=== PATIENT | female | born 1960 | race Asian ===

== ENCOUNTER → 2020-11-29 17:37 | Outpatient (CLI) | payer BC, SELFPAY ==
--- NOTE | ~2020-11-29 | MM_ITS ---
EXAMINATION: MM screening [facility] w juan jose HISTORY: Screening mammogram TECHNIQUE: Craniocaudal and mediolateral oblique 3-D tomosynthesis images were obtained and synthetic 2-D images were generated. CAD analysis was submitted and interpreted. COMPARISON: 08/13/2017, 08/04/2017, 03/27/2016, 05/25/2012 BREAST PARENCHYMAL COMPOSITION: There are scattered areas of fibroglandular density. FINDINGS: A chronic asymmetry is present in the posterior third of the outer right breast on the cran iocaudal view. There is no evidence of suspicious mass, calcification, or architectural distortion to suggest malignancy in either breast. There has been no suspicious interval change. IMPRESSION: 1. No mammographic evidence of malignancy. 2. Recommend routine screening mammography in one year. BI-RADS Category 2: Benign finding(s). Reviewed, dictated and finalized at location A.
--- NOTE | ~2020-11-29 | DEXA_ITS ---
Bone Density Report Name: Leny Roth Age: 60 Sex: Female Ethnicity: Date of : 1960 Indication: postmenopausal; screening for osteoporosis; parental hip fracture; Referring Provider: Matty, Lupe Aviles Study: Bone densitometry was performed. Exam Date: November 29, 2020 Accession number: [id number] Bone Density: Region BMD T-score Z-score Classification AP Spine (L1, L2) 1.356 3.4 4.7 Normal Femoral Neck (Left) 0.768 -0.7 0.5 Normal Total Hip (Left) 1.010 0.6 1.5 Normal Femoral Neck (Right) 0.868 0.2 1.4 Normal Total Hip (Right) 1.007 0.5 1.4 Normal Total Hip Mean 1.009 0.6 1.5 Normal World Health Organization criteria for BMD impression classify patients as: Normal (T-score at or above -1.0), Osteopenia (T-score between -1.0 and -2.5), or Osteoporosis (T-score at or below -2.5). 10-year Fracture Risk: FRAX not reported because: All T-scores for Spine Total, Hip Total, Femoral Neck at or above -1.0 Previous Exams: Region Exam Age BMD T-score BMD Change BMD Change Date g/cm2 vs Baseline vs Previous AP Spine(L1, L2) 11/29/2020 60 1.356 3.4 0.029 -0.007 08/04/2017 56 1.362 3.5 0.036* 0.036* 06/15/2013 52 1.327 3.2 Total Hip(Left) 11/29/2020 60 1.010 0.6 0.047 0.061 08/04/2017 56 0.949 0.1 -0.014 -0.014 06/15/2013 52 0.962 0.2 Total Hip(Right) 11/29/2020 60 1.007 0.5 -0.017 0.020 08/04/2017 56 0.987 0.4 -0.037* -0.037* 06/15/2013 52 1.024 0.7 *Denotes significance at 95% confidence level, LSC for AP Spine = 0.022 g/cm2, LSC for Total Hip = 0.027 g/cm2 Clinical Information Provided by Patient: Parent has had a hip fracture Has used the following medications: Vitamin D Patient maximum height was 60.0 Menopause Age: 53 No regular weight bearing exercise Drinks caffeinated beverages Onset of menses at age 11 Number of children 3 Impression: The patient has normal bone mass. The patient has risk factors, including: parental hip fracture. No significant bone loss was observed. Discussion: BONE DENSITY IS ABOVE THE MINIMUM DESIRABLE LEVEL AT ALL SKELETAL SITES TESTED. This patient?s bone mineral density is above the minimum desirable level (T-score -1.0 or better) at all sites measured. The patient should follow a healthful lifestyle (good nutrition with adequate calcium and
== END ==
PROVIDERS: Visit Provider Nurse Practitioner Family
DX: Z12.31 Encounter for screening mammogram for malignant neoplasm of breast (principal); Z78.0 Asymptomatic menopausal state
CPT/HCPCS: 77063; 77067; 77080

== ENCOUNTER 2020-11-30 09:11 | Outpatient (CLI) | payer BC, SELFPAY ==
--- NOTE | 2020-11-30 13:09 | WPDPFTINT ---
PFT Procedure Performed PFT Procedure Performed Spirometry with Pre/Post Bronchodilator Plethysmography (Lung Vol) Diffusing Cap (DLCO) Flow Vol Loop PFT Interpretation This is a pulmonary function test with pre and post-bronchodilator spirometry, plethysmography and diffusing capacity. The test was performed and results interpreted in accordance with the 2019 and 2005 ATS/ERS Task Force guidelines respectively using the Global Lung Function Initiative-2012 reference equations. Patient demonstrated good effort and cooperation. Reproducibility criteria were met. The quality of the pre bronchodilator spirometry maneuver was Grade A and post bronchodilator spirometry maneuver was Grade A. Findings: Spirometry: The contour the inspiratory and expiratory flow tracing are normal. The pre bronchodilator FVC is 1.73 L, 63% predicted. The pre bronchodilator FEV1 is 1.31 L, 60% predicted. The FEV1: FVC ratio is 76%. The post bronchodilator FVC is 1.74, representing 0% change. The post bronchodilator FEV1 is 1.41 L, representing an 8% increase. Plethysmography: The total lung capacity is 2.92 L, 66% predicted. The functional residual capacity is 1.24 L, 50% predicted. The residual volume is 1.18 L, 67% predicted. Diffusing capacity: The absolute diffusion capacity is 14.7, 73% predicted. The diffusing capacity corrected for alveolar volume is 5.69, 123% predicted. Impression: There is a moderate restrictive ventilatory abnormality. The spirometry is normal without evidence of an obstructive abnormality. There is no significant improvement after inhaling a single dose of albuterol. The diffusing capacity is normal. There are no prior studies for comparison
--- NOTE | 2020-11-30 13:12 | WPDSIXMINUTE ---
Six Minute Walk Procedure Procedure Performed Pulmonary Stress Test (6 min walk) Six Minute Walk This is a 6 minutes walk test. The test was performed and interpreted in accordance with the 2014 ERS/ATS task force guidelines. Findings: The patient's resting room air oxygen saturation measured by pulse oximetry was 96% and her heart rate was 77 bpm. Patient ambulated for 335 meters and oxygen saturation remained 94 to 98%. Heart rate at the end of the study was 109 bpm. The patient did not qualify for supplemental oxygen at rest or with ambulation. There are no prior studies for comparison.
== END 2020-11-30 09:12 | disposition home or self-care (01) ==
LOC: ANHPFT 09:13
PROVIDERS: PCP Nurse Practitioner Family; Visit Provider Nurse Practitioner Family
DX: R06.00 Dyspnea, unspecified (principal); R94.2 Abnormal results of pulmonary function studies
CPT/HCPCS: 94060; 94618; 94726; 94729

== ENCOUNTER 2020-12-12 06:36 | Outpatient (CLI) | payer BC, SELFPAY ==
--- NOTE | ~2020-12-12 | CT_ITS ---
EXAMINATION: CT chest high resolution wo ma DATE: 12/12/2020 06:55 INDICATION: Abnormal pulmonary function tests, restrictive lung function TECHNIQUE: Computed tomography (CT) of the chest was performed without intravenous contrast. The dose -length product (DLP) was 209.81 mGy-cm. Automated exposure control and iterative reconstruction tech nique were employed. COMPARISON: None FINDINGS: There are patchy dependent groundglass opacities of the mid and lower lung zones. No pleura l effusion or pneumothorax is identified. No pathologically enlarged thoracic lymph nodes are identif ied. The heart size is normal. There is a 7 mm nodule of the right thyroid lobe. There is moderate th oracic spondylosis. There are partially imaged changes of anterior fusion in the lower cervical spine . IMPRESSION: 1. Mild atelectasis without acute cardiopulmonary abnormality. Reviewed, dictated and finalized at location A.
== END 2020-12-12 06:37 | disposition home or self-care (01) ==
LOC: ANHIMG 06:38
PROVIDERS: PCP Nurse Practitioner Family; Visit Provider Nurse Practitioner
DX: R94.2 Abnormal results of pulmonary function studies (principal); R91.8 Other nonspecific abnormal finding of lung field
CPT/HCPCS: 71250

== ENCOUNTER → 2021-03-02 03:46 | Outpatient (CLI) | payer BC, SELFPAY ==
[2021-03-03 01:35] LABS: SARS-CoV-2 RNA PCR Negative
== END ==
PROVIDERS: PCP Nurse Practitioner Family; Visit Provider Internal Medicine Gastroenterology
DX: Z01.812 Encounter for preprocedural laboratory examination (principal); Z20.822 Contact with and (suspected) exposure to COVID-19
CPT/HCPCS: C9803; U0003; U0005

== ENCOUNTER 2021-03-05 01:23 | Day surgery (SDC) | payer BC, SELFPAY ==
[2021-03-01 11:10] VITALS: BMI 33.1
--- NOTE | 2021-03-05 06:33 | PM.HPGS ---
History of Present Illness History of Present Illness Consent: Risks, benefits, and alternatives have been discussed and questions answered. Patient agrees to proceed with procedure. Chief complaint: diverticulitis, abd ct Narrative: Leny Roht is a 60 year old female Who recently had a CT scan performed to investigate left lower quadrant pain. This study revealed thickening in the sigmoid colon and also what appears to be thickening in the gastric antrum. She has had no weight loss. Review of Systems Review of Systems: All systems reviewed & are unremarkable except as noted in HPI and below PMFSH Family History Family History Other Hypertension Social History Social History Smoking packs per day: 0.5 Smoking cigarettes per day: 10.0 Years smoked: 35 Smoking pack-years: 17.50 Smoking status: Former smoker Tobacco type: cigarettes Alcohol intake: current Substance use: never Substance use type: does not use Living arrangements: with family Spiritual care concerns: No Meds Home Medications and Allergies Home Medications Medication Instructions Recorded Confirmed Type Daily Probiotic 1 cap PO DAILY 03/01/21 03/01/21 History albuterol sulfate 2 puff INHALATION Q4-6H PRN 03/01/21 03/01/21 History allopurinol 100 mg PO DAILY 03/01/21 03/01/21 History aspirin [Aspirin Low Dose] 81 mg PO DAILY 03/01/21 03/01/21 History ergocalciferol (vitamin D2) 50,000 unit PO WEEKLY 03/01/21 03/01/21 History lisinopril 5 mg PO DAILY 03/01/21 03/01/21 History montelukast 10 mg PO DAILY 03/01/21 03/01/21 History nitrofurantoin monohyd/m-cryst 100 mg PO DAILY PRN 03/01/21 03/01/21 History omeprazole 40 mg PO DAILY 03/01/21 03/01/21 History rosuvastatin 20 mg PO DAILY 03/01/21 03/01/21 History Allergies Allergy/AdvReac Type Severity Reaction Status Date / Time No Known Allergies Allergy Verified 03/05/21 07:10 Exam Resp: Auscultation: clear to auscultation bilaterally Cardio: Rate: regular rate Rhythm: regular rhythm GI: GI Palp: Yes Soft to palpation and No Tenderness to palpation present (GI) Assessment and Plan Assessment and plan (1) Abnormal CT scan, gastrointestinal tract: Code(s): R93.3 - Abnormal findings on diagnostic imaging of other parts of digestive tract Status: Acute Assessment and Plan: EGD with possible biopsy or dilatation or cautery.Colonoscopy with possible biopsy or polypectomy or cautery or injection of substances.
[2021-03-05 07:15] VITALS: BP 150/95; PULSE 100; RESP 18; TEMP 36.1; O2SAT 97
--- NOTE | 2021-03-05 07:27 | WPDANESEPPF ---
Anes - Initial Pre Proc Eval Procedure: Operation Date: 03/05/21 07:30 Proposed Procedures p Esophagogastroduodenoscopy & Colonoscopy - Jhonathan Narayan MD Date/Time: 03/05/21 07:27 Surgeon: Jhonathan Narayan MD Pre Op Diagnosis: diverticulitis, abd ct Patient Data Age: 60 Gender: F Height: 1.52 m Weight: 75.7 kg Last Vital Signs Temp 36.1 C L 03/05/21 07:15 Pulse 100 03/05/21 07:15 Resp 18 03/05/21 07:15 BP 150/95 H 03/05/21 07:15 Pulse Ox 97 03/05/21 07:15 Allergies Allergy/AdvReac Type Severity Reaction Status Date / Time No Known Allergies Allergy Verified 03/05/21 07:10 Home Medications Medication Instructions Recorded Confirmed Type Daily Probiotic 1 cap PO DAILY 03/01/21 03/01/21 History albuterol sulfate 2 puff INHALATION Q4-6H PRN 03/01/21 03/01/21 History allopurinol 100 mg PO DAILY 03/01/21 03/01/21 History aspirin [Aspirin Low Dose] 81 mg PO DAILY 03/01/21 03/01/21 History ergocalciferol (vitamin D2) 50,000 unit PO WEEKLY 03/01/21 03/01/21 History lisinopril 5 mg PO DAILY 03/01/21 03/01/21 History montelukast 10 mg PO DAILY 03/01/21 03/01/21 History nitrofurantoin monohyd/m-cryst 100 mg PO DAILY PRN 03/01/21 03/01/21 History omeprazole 40 mg PO DAILY 03/01/21 03/01/21 History rosuvastatin 20 mg PO DAILY 03/01/21 03/01/21 History Patient hx anesthesia problems: none Family hx anesthesia problems: none PMFSH Past Medical History Medical History (Updated 03/05/21 @ 07:30 by Isac Mckinney MD) GERD (gastroesophageal reflux disease) Hyperlipidemia Obesity Family History Family History Other Hypertension Social History Social History Smoking packs per day: 0.5 Smoking cigarettes per day: 10.0 Years smoked: 35 Smoking pack-years: 17.50 Smoking status: Former smoker Tobacco type: cigarettes Alcohol intake: current Substance use: never Substance use type: does not use Living arrangements: with family Spiritual care concerns: No Anes - Eval Final PreProcedure Day of Procedure 03/05/21 07:27 Patient weight: obese Heart: regular rate and rhythm Lungs: clear to auscultation Airway: Mallampati scale class II Neurological: alert and oriented Last oral intake: >/= 8 hours ASA classification: III Emergent: no Anesthetic plan: proceed Anesthesia type and monitoring: general GIVS and standard monitoring Informed Consent: The patient's anesthetic plan and its attendant risks and benefits were discussed with the patient/family/POA. Questions were solicited and answers provided to the satisfaction of the patient/family/POA.
[2021-03-05] MEDS: LACTATED RINGERS 1,000 ML 150 ML IV CONT (07:29)
[2021-03-05 08:30] VITALS: BP 102/73; PULSE 83; RESP 22; O2SAT 100
[2021-03-05 08:40] VITALS: BP 115/87; PULSE 76; RESP 19; O2SAT 98
[2021-03-05 08:50] VITALS: BP 122/89; PULSE 71; RESP 17; O2SAT 100
== END 2021-03-05 08:59 | disposition home or self-care (01) ==
PROVIDERS: PCP Nurse Practitioner Family; Visit Provider Internal Medicine Gastroenterology
PROC: 0DJ08ZZ Inspection of Upper Intestinal Tract, Via Natural or Artificial Opening Endoscopic (ICD-10-PCS; CPT 43235; principal; 2021-03-05 07:30)
DX: R93.3 Abnormal findings on diagnostic imaging of other parts of digestive tract (principal); K21.9 Gastro-esophageal reflux disease without esophagitis; K57.30 Diverticulosis of large intestine without perforation or abscess without bleeding; Z87.891 Personal history of nicotine dependence
CPT/HCPCS: 43239; 45378; 87081; 88305; J2704; J7120

== ENCOUNTER 2021-05-04 11:18 | Inpatient (IN) | payer BC, SELFPAY ==
--- NOTE | ~2021-05-04 | XR_ITS ---
XR chest 1V portable 05/06/2021 05:48 Indication: CovidPneumonia. Procedure: AP portable chest Comparison: 05/04/2021 Findings: No significant change to extensive bilateral airspace disease. Heart size upper normal. No pleural effusion or pneumothorax. No acute osseous abnormality. Impression: 1: Stable diffuse bilateral airspace disease, compatible with pneumonia. Edema less favored. Reviewed, dictated and finalized at location A. Impression: 1: Stable diffuse bilateral airspace disease, compatible with pneumonia. Edema less favored.
--- NOTE | ~2021-05-04 | XR_ITS ---
EXAMINATION: XR chest 1V portable DATE: 05/09/2021 14:02 INDICATION: Hypoxia. COVID. TECHNIQUE: frontal view of the chest was obtained. COMPARISON: Chest radiograph dated 05/08/2021 FINDINGS: No interval change in diffuse airspace opacities throughout both lungs relatively sparing the apices. No pleural effusion or pneumothorax. The cardiomediastinal silhouette is normal. IMPRESSION: 1. Unchanged diffuse bilateral lung disease consistent with COVID 19 pneumonia. Reviewed, dictated and finalized at location A.
--- NOTE | ~2021-05-04 | XR_ITS ---
EXAMINATION: XR chest 1V portable EXAM DATE: 05/04/2021 12:38 INDICATION: SOB, covid + . TECHNIQUE: Portable AP frontal chest x-ray was obtained. There is no prior study for comparison. FINDINGS: Diffuse acute airspace disease consistent with COVID pneumonia. No pneumothorax or pleural effusion. Cardiomediastinal silhouette is normal. There are bony degenerative changes. IMPRESSION: Diffuse COVID pneumonia. Reviewed, dictated and finalized at location B. IMPRESSION: Diffuse COVID pneumonia.
--- NOTE | ~2021-05-04 | XR_ITS ---
EXAMINATION: XR chest 1V portable DATE: 05/08/2021 05:57 INDICATION: Shortness of breath. TECHNIQUE: A single frontal view of the chest was obtained. COMPARISON: Chest single view 05/06/2021, chest CT 12/12/2020 FINDINGS: The patient is rotated to her left. There are airspace opacities in all lung zones bilatera lly. No pleural effusion or pneumothorax. The heart size is normal. There are changes of anterior fus ion procedure in cervical spine. IMPRESSION: 1. Stable diffuse lung disease, consistent with COVID-19 pneumonia. Reviewed, dictated and finalized at location A.
[2021-05-04 11:27] VITALS: BP 125/90; PULSE 111; RESP 28; TEMP 36.9; O2SAT 69
--- NOTE | 2021-05-04 11:39 | ECG_ITS ---
Measurements Intervals [place] Rate: 95 P: 70 SD: 145 QRS: 78 QRSD: 136 T: 53 QT: 386 QTc: 486 Interpretive Statements SINUS RHYTHM RIGHT BUNDLE BRANCH BLOCK BASELINE ARTIFACT- I, II, III, AVR, AVF, V2-V6 ABNORMAL ECG Electronically Signed On 05-04-2021 11:55:40 CDT by Edwin Zimmerman D.O.
--- NOTE | 2021-05-04 11:57 | ED.SOB ---
HPI - SOB/Dyspnea General Chief Complaint: Shortness of Breath/Dyspnea <Jessica Kumar PA-C - Last Filed: 05/04/21 15:42> Stated Complaint: COVID + LOW O2 SATS <SYDNI Judd Last Filed: 05/04/21 15:42> Time Seen by Provider: 05/04/21 11:40 <SYDNI Judd Last Filed: 05/04/21 15:42> Source: patient <SYDNI Judd Last Filed: 05/04/21 15:42> Mode of arrival: ambulatory <SYDNI Judd Last Filed: 05/04/21 15:42> Limitations: no limitations <SYDNI Judd Last Filed: 05/04/21 15:42> History of Present Illness HPI Narrative: This is a 60 year old female that presents to the ER for shortness of breath. Reports she started having symptoms and tested positive for Covid on the of this month. Reports fever, nausea, cough and myalgias. Reports chest pain with coughing. She is not Covid vaccinated. She was seen at [facility] 3 days ago and diagnosed with pneumonia. She was started on doxycycline and a Medrol Dosepak. Denies lower extremity edema. <SYDNI Judd Last Filed: 05/04/21 15:42> Related Data Home Medications: Home Medications Medication Instructions Recorded Confirmed Daily Probiotic 1 cap PO DAILY 03/01/21 03/01/21 albuterol sulfate 2 puff INHALATION Q4-6H PRN 03/01/21 03/01/21 allopurinol 100 mg PO DAILY 03/01/21 03/01/21 aspirin [Aspirin Low Dose] 81 mg PO DAILY 03/01/21 03/01/21 ergocalciferol (vitamin D2) 50,000 unit PO WEEKLY 03/01/21 03/01/21 lisinopril 5 mg PO DAILY 03/01/21 03/01/21 montelukast 10 mg PO DAILY 03/01/21 03/01/21 nitrofurantoin monohyd/m-cryst 100 mg PO DAILY PRN 03/01/21 03/01/21 omeprazole 40 mg PO DAILY 03/01/21 03/01/21 rosuvastatin 20 mg PO DAILY 03/01/21 03/01/21 <Jessica Kumar PA-C - Last Filed: 05/04/21 15:42> Allergies/Adverse Reactions: Allergies Allergy/AdvReac Type Severity Reaction Status Date / Time No Known Allergies Allergy Verified 03/05/21 07:10 <Jessica Kumar PA-C - Last Filed: 05/04/21 15:42> Review of Systems Review of Systems: CONSTITUTIONAL: Reports fever, chills CARDIOVASCULAR: Reports chest pain. Denies edema. RESPIRATORY: Reports cough or dyspnea. GASTROINTESTINAL: Denies abdominal pain MUSCULOSKELETAL: Reports myalgia. NEUROLOGIC: Denies numbness, or weakness. <Jessica Kumar PA-C - Last Filed: 05/04/21 15:42> All systems reviewed & are unremarkable except as noted in HPI and below <Jessica Kumar PA-C - Last Filed: 05/04/21 15:42> PMFSH Past Medical History Medical History: Medical History (Updated 05/04/21 @ 15:37 by Jessica Kumar PA-C) GERD (gastroesophageal reflux disease) History of asthma History of hypertension Hyperlipidemia Obesity <Jessica Kumar PA-C - Last Filed: 05/04/21 15:42> Family History Family History: Family History Other Hypertension <Jessica Kumar PA-C - Last Filed: 05/04/21 15:42> Social History Social History: Social History Smoking packs per day: 0.5 Smoking cigarettes per day: 10.0 Years smoked: 35 Smoking pack-years: 17.50 Smoking status: Former smoker Tobacco type: cigarettes Alcohol intake: current Substance use: never Substance use type: does not use Spiritual care concerns: No <Jessica Kumar PA-C - Last Filed: 05/04/21 15:42> Exam Narrative: GENERAL: Well-appearing, well-nourished, and in no acute distress. HEAD: Normocephalic, atraumatic. EYES: PERRLA and EOMI. ENT: Nares clear, no rhinorrhea or epistaxis. Mucous membranes moist. Oropharynx without tonsillar hypertrophy exudate or other lesions. Bilateral TMs pearly soto non-bulging NECK: Supple. No adenopathy or masses. CHEST: No respiratory distress. Rales noted at the bases. No wheezes or rhonchi HEART: Regular rate and rhythm. No murmur heard. Normal pe
[2021-05-04 12:12] LABS: Alveolar/Arterial O2 Gradient 148.5 mmHg; Base Excess ABG 1.7 mEq/l (+/-2.0); Carboxyhemoglobin 0.8 % THb (0-2.0); Fractional Inspired Oxygen 40 %; HCO3 ABG 25.6 mEq/l (22.0-26.0); Methemoglobin ABG 0.3 %THb (0-1.5); Oxygen Content ABG 19.5 %vol (16.0-22.0); Oxygen Saturation ABG 97.4 % (95.0-100.0); Oxyhemoglobin 95.4 % THb (90.0-100.0); PCO2 ABG 37.9 mmHg (35.0-45.0); PO2 ABG 93.1 mmHg (80.0-100.0); PO2 FiO2 Ratio Arterial Blood 2.33 %; Reduced Hemoglobin 3.5 %THb (0-5.0); Total Hemoglobin 14.5 g/dL (12.0-18.0); pH ABG 7.447 (7.350-7.450)
[2021-05-04 12:14] LABS: Device NASAL CANNULA
[2021-05-04 12:15] LABS: Site Drawn RIGHT BRACHIAL
[2021-05-04 12:15] LABS: Basophils Percent Auto 0.2 % (0.2-1.2); Hemoglobin 14.7 g/dL (12.0-15.0); Immature Granulocyte Absolute 0.19 K/mm3 (0.00-0.031); Immature Granulocyte Percent A 1.7 % (0-0.5); Lymphocytes Absolute Auto 0.85 K/mm3 (0.9-3.2); Lymphocytes Percent Auto 7.6 % (18.3-44.2); Mean Corpuscular HGB Conc 32.7 g/dl (32-36); Mean Corpuscular Hemoglobin 29.5 pg (26-34); Mean Corpuscular Volume 90.4 fl (80-100); Mean Platelet Volume 9.7 fl (7.4-10.4); Monocytes Absolute Auto 0.6 K/mm3 (0.1-0.6); Neutrophils Absolute Auto 9.6 K/mm3 (1.3-6.7); Neutrophils Percent Auto 85.5 % (45.5-73.1); Platelet Count Result 281 k/mm3 (150-375); Red Blood Count 4.98 M/mm3 (4.2-5.4); Red Cell Distribution Width 12.9 % (11.5-14.5); White Blood Count 11.2 K/mm3 (4.5-10.0)
[2021-05-04 12:41] LABS: Alanine Aminotransferase 204 U/L (4-35); Albumin Level 4.5 g/dL (3.5-5.1); Alkaline Phosphatase 123 U/L (38-126); Anion Gap 9 mmol/L (8-16); Aspartate Amino Transferase 209 U/L (14-36); Bilirubin,Total 1.2 mg/dL (0.2-1.3); Blood Urea Nitrogen 14 mg/dL (7-17); CRP 6.5 mg/dL (<1.0); Calcium 9.5 mg/dL (8.4-10.2); Carbon Dioxide 32 mmol/L (22-30); Chloride 94 mmol/L (98-107); Estimated CRCL calculation 78 ml/min; Estimated Glomerular Filt Rate > 60; Glucose 105 mg/dL (65-110); Potassium 3.7 mmol/L (3.4-5.0); Sodium 135 mmol/L (137-145)
[2021-05-04 12:53] LABS: Lactate Dehydrogenase 1911 U/L (313-618)
[2021-05-04 13:14] LABS: Troponin I < 0.012 ng/mL (0.000-0.034)
[2021-05-04 13:46] VITALS: BP 116/77; PULSE 89; RESP 18; O2SAT 97
[2021-05-04 13:52] LABS: INR 0.9; Prothrombin Time 12.1 Seconds (11.1-14.7)
[2021-05-04 13:53] LABS: Partial Thromboplastin Time 29.5 SECONDS (22.3-36.8)
[2021-05-04 13:55] LABS: D Dimer 1.04 ug/mL (<0.48)
--- NOTE | 2021-05-04 14:31 | PC.NURSE ---
Pt went down for CTSCAN. Pt informed tech that she did not want to have another CTSCAN due to having one earlier this week. PT states she doesnt want to be charged twice.
[2021-05-04 15:00] VITALS: BP 135/76; PULSE 95; RESP 21; O2SAT 100
--- NOTE | 2021-05-04 15:15 | PC.NURSE ---
consent signed by pt to have medical information sent from [facility] . Faxed paperwork [phone]
[2021-05-04 15:31] LABS: Ferritin > 2000.00 ng/mL (11.1-264)
[2021-05-04 16:33] LABS: Procalcitonin 0.1 ng/mL
--- NOTE | 2021-05-04 17:30 | PM.IMHP ---
H&P: HPI History of Present Illness Date/Time: 05/04/21 17:30 Chief Complaint: Shortness of breath and low oxygen saturations. Narrative: This is a 60-year-old female with hypertension, hyperlipidemia, and seasonal asthma who presented to the emergency department earlier today via private vehicle from home for evaluation of shortness of breath and low oxygen saturations. She has not been feeling well for about 10 days with malaise, myalgias, nonproductive cough, nausea, decreased appetite, and fever up to 103.5? F. She tested positive for COVID 19 on 04/24/2021 and she was prescribed a Z-Gurjit and Tessalon Perles the following day. Unfortunately her symptoms did not improve and in fact they continued to worsen and she was seen in the emergency department at [facility] days ago at which time she was diagnosed with pneumonia. She was discharged with prescriptions for a Medrol Dosepak as well as doxycycline and she was told to monitor her pulse ox. Her SpO2 has been dropping down into the 70s with coughing jags which prompted her to come in today. On arrival to the emergency department her SpO2 was 69% on room air and she was placed on 6 L nasal cannula with improvement in her shortness of breath and saturations. Chest x-ray today showed diffuse airspace disease consistent with COVID pneumonia and she is being admitted in this setting. The patient was not vaccinated for COVID and she did not receive any other treatment prior to admission today other than what is listed above. Review of Systems Review of Systems: Twelve systems were reviewed. No syncope or near syncope. She denies anosmia and dysgeusia. Appetite has been poor. No vomiting. No diarrhea. She has not had exertional chest pain but reports some heaviness with her shortness of breath. Her cough has been nonproductive. No lower extremity edema. No pleuritic pain or palpitations. Except as documented, all other systems were reviewed and are negative. [facility] Past Medical History Medical History (Updated 05/04/21 @ 23:06 by Leonora Tovar PA-C) COVID-19 (04/24/21) Diverticulitis Gastroesophageal reflux disease Hyperlipidemia Hypertension Obesity Seasonal asthma Surgical History Surgical History (Updated 05/04/21 @ 23:03 by Leonora Tovar PA-C) History of 3 sections History of cervical spinal surgery History of lumbar surgery Family History Family History Other Hypertension Social History Social History (Updated 05/04/21 @ 23:03 by Leonora Tovar PA-C) Social History: Surrogate decision maker: Isac Roth, spouse. Code status: Full code. Smoking packs per day: 0.5 Smoking cigarettes per day: 10.0 Years smoked: 35 Smoking pack-years: 17.50 Smoking status: Former smoker Tobacco type: cigarettes Alcohol intake: current Drinks per week: 1 Substance use: never Substance use type: does not use Additional living arrangements comments: Lives in [place] with her . They have 3 children. Additional occupation/education comments: Employed at a [employer]. Spiritual care concerns: Yes (Lev Hsiehecostal) Meds Home Medications and Allergies Home Medications Medication Instructions Recorded Confirmed Type L.acidoph,saliva-B.bif-S.therm 1 cap PO DAILY #0 03/01/21 05/04/21 History [Acidophilus Probiotic Blend] albuterol sulfate 2 puff INHALATION Q4-6H PRN 03/01/21 05/04/21 History allopurinol 100 mg PO DAILY 03/01/21 05/04/21 History aspirin [Aspirin Low Dose] 81 mg PO DAILY 03/01/21 05/04/21 History ergocalciferol (vitamin D2) 50,000 unit PO WEEKLY 03/01/21 05/04/21 History lisinopril 5 mg PO HS 03/01/21 05/04/21 History montelukast 10 mg PO HS 03/01/21 05/04/21 History nitrofurantoin monohyd/m-cryst 100 mg PO HS PRN 03/01/21 05/04/21 History omeprazole 40 mg PO HS 03/01/21 05/04/21 History rosuvastatin 20 mg PO HS 03/01/2104/20
[2021-05-04 18:30] VITALS: O2SAT 93
[2021-05-04 20:00] VITALS: PULSE 95; RESP 21; O2SAT 93
[2021-05-04 23:05] LABS: Glucose Point of Care 111 mg/dl (65-105)
[2021-05-05] VITALS (17 sets, daily range): BP systolic 103–136; BP diastolic 59–85; PULSE 72–111; RESP 16–22; TEMP 36.3–37; O2SAT 88–98
[2021-05-05] MEDS: REMDESIVIR 200 MG/NS 250 ML 200 MG/250 ML BAG 250 MG IVPB (00:40)
[2021-05-05] MEDS: ROSUVASTATIN 10 MG TABLET 20 MG PO ×2 (00:41→21:59)
[2021-05-05] MEDS: PANTOPRAZOLE 40 MG TABLET PO ×2 (00:44→22:00)
[2021-05-05] MEDS: guaiFENesin 12 HR 600 MG TABCR PO ×3 (00:44→21:59)
[2021-05-05] MEDS: MONTELUKAST SODIUM 10 MG TABLET PO ×2 (00:44→21:59)
[2021-05-05] MEDS: DOXYCYCLINE HYCLATE 100 MG TABLET PO ×3 (00:45→22:00)
[2021-05-05] MEDS: lisinopriL 5 MG TABLET PO ×2 (01:00→21:59)
[2021-05-05 06:28] LABS: Hematocrit 38.8 % (37.0-47.0); Hemoglobin 13.1 g/dL (12.0-15.0); Mean Corpuscular HGB Conc 33.8 g/dl (32-36); Mean Corpuscular Hemoglobin 29.9 pg (26-34); Mean Corpuscular Volume 88.6 fl (80-100); Platelet Count Result 284 k/mm3 (150-375); Red Blood Count 4.38 M/mm3 (4.2-5.4); Red Cell Distribution Width 12.5 % (11.5-14.5); White Blood Count 7.8 K/mm3 (4.5-10.0)
[2021-05-05 06:36] LABS: INR 0.9; Prothrombin Time 12.5 Seconds (11.1-14.7)
[2021-05-05 06:39] LABS: D Dimer 1.16 ug/mL (<0.48)
[2021-05-05 06:40] LABS: Alanine Aminotransferase 186 U/L (4-35); Albumin Level 3.8 g/dL (3.5-5.1); Alkaline Phosphatase 110 U/L (38-126); Anion Gap 10 mmol/L (8-16); Aspartate Amino Transferase 118 U/L (14-36); Bilirubin,Total 1.1 mg/dL (0.2-1.3); Blood Urea Nitrogen 13 mg/dL (7-17); CRP 8.4 mg/dL (<1.0); Carbon Dioxide 28 mmol/L (22-30); Chloride 96 mmol/L (98-107); Estimated CRCL calculation 79 ml/min; Estimated Glomerular Filt Rate > 60; Glucose 148 mg/dL (65-110); Lactate Dehydrogenase 1366 U/L (313-618); Magnesium 2.1 mg/dL (1.6-2.3); Sodium 134 mmol/L (137-145)
[2021-05-05 08:33] LABS: Hepatitis B Surface Antigen Negative (Negative)
[2021-05-05 08:39] LABS: HAV RESULT Negative (Negative); Hepatitis B Core IgM Result Negative (Negative)
[2021-05-05 08:51] LABS: Hepatitis C Virus Antibody Negative (Negative)
[2021-05-05] MEDS: ASPIRIN 81 MG ENTERIC TABLET PO (10:37)
[2021-05-05] MEDS: ENOXAPARIN 40 MG/0.4 ML SYRINGE SUB-Q (10:37)
[2021-05-05] MEDS: allopurinoL 100 MG TABLET PO (10:38)
[2021-05-05] MEDS: ACIDOPHILUS/BULGARICUS CHEWABLE TABLET 1 TABLET PO (10:38)
--- NOTE | 2021-05-05 15:01 | PM.IMPN ---
Progress Note: A&P Assessment and Plan (1) Acute respiratory failure with hypoxia: Code(s): J96.01 - Acute respiratory failure with hypoxia Status: Acute Assessment and Plan: diagnosed with COVID on 04/24/2021 and not improved, increasing shortness of breath and periods of hypoxia Chest x-ray today shows diffuse infiltrate consistent with COVID pneumonia started on dexamethasone and remdesivir on 05/04 at admission. Today is day 2 of her Remdesivir and steroids. monitoring elevated inflammatory markers persistent 6 L O2 oxygen requirements at admission patient refused baricitinib treatment, but may reconsider if no improvement. continue the doxycycline which was started outpatient (05/01) approx. 3 days ago procalcitonin level = 0.1 low risk for sepsis/bacterial infxn. Sputum culture ordered. Albuterol MDI PRN, scheduled DuoNebs Q6 hours. dyspnea when ambulating across the room to her bathroom. ordered and requested a bedside commode for her. consider ECHO and/or repeat CT scan if not improved tomorrow. ordered PT and OT evaluation Ddimer levels: 1.04, 1.16, INR 0.9, LDH 1911, 1366, CRP 6.5, 8.4. Ordered CXR for morning, recheck of DDimer (had CT scan at [facility], reports requested) LDH, Ferritin, CBC, BMP, Phos, and CRP levels in the morning. Encouraged her to continue using incentive spirometer on a regular basis. no prior COVID vaccine (2) Pneumonia due to COVID-19 virus: Code(s): U07.1 - COVID-19; J12.82 - Pneumonia due to coronavirus disease 2018 Status: Acute Assessment and Plan: possible bacterial pneumonia due to no improvement for many days. continued Doxy CXR repeat in morning WBC improved to 7.8 and no fevers, cough not productive (3) Transaminasemia: Code(s): R74.01 - Elevation of levels of liver transaminase levels Status: Acute Assessment and Plan: LDH 1911, 1366, CRP 6.5, 8.4. recheck of LDH, Ferritin, CBC, BMP, Phos, and CRP levels in the morning. Remdesivir on 05/04 at admission. Today is day 2 of her Remdesivir and steroids. Monitoring LFTs. (4) Hypertension: Code(s): I10 - Essential (primary) hypertension Status: Acute Assessment and Plan: Controlled at this time. BP 103/69 with HR 84 continue hOME mEDS: ASA, Lisinopril, and statin. (5) Seasonal asthma: Code(s): J45.998 - Other asthma Status: Acute Assessment and Plan: CONTINUE HOME SINGULAIR and inhalers higher risk for complications with COVID monitor closely , CXR in morning (6) Gastroesophageal reflux disease: Code(s): K21.9 - Gastro-esophageal reflux disease without esophagitis Status: Acute Assessment and Plan: Takes omeprazole at home, continue Protonix No complaints no acid reflux (7) Hyperlipidemia: Code(s): E78.5 - Hyperlipidemia, unspecified Status: Chronic Assessment and Plan: Continue statin home medications Subjective Date/time seen: 05/05/21 15:01 Ender Roth is feeling only slightly better today. She continues to require 6 L of oxygen per nasal cannula. The nurse has been trying to wean her from 6 L today but has been unable to. She reports significant shortness of breath and dyspnea when ambulating across the room to her bathroom. I have ordered and requested a bedside commode for her. I have ordered PT and OT evaluation.Today is day 2 of her Remdesivir and steroids. Added scheduled DuoNeb treatments. Ddimer levels: 1.04, 1.16, INR 0.9, LDH 1911, 1366, CRP 6.5, 8.4. Ordered CXR for morning, recheck of DDimer (had CT scan at [facility], reports requested) LDH, Ferritin, CBC, BMP, Phos, and CRP levels in the morning. Encouraged her to continue using incentive spirometer on a regular basis. Her mother is now also admitted today for COVID. Her remains at home. [place] learned that she likely contracted COVID from a positive co-worker. Review of Systems Review of Systems: Kyrie noriega
[2021-05-05] MEDS: IPRATROPIUM BR 0.02% INH SOLN 0.5 MG/2.5 ML VIAL INHALATION (20:59)
[2021-05-05] MEDS: ALBUTEROL SULFATE NEB 2.5 MG/0.5 ML INH INHALATION (20:59)
[2021-05-05] MEDS: REMDESIVIR 100 MG/NS 250 ML 100 MG/250 ML BAG 250 MG IVPB (22:00)
[2021-05-06] VITALS (21 sets, daily range): BP systolic 117–168; BP diastolic 66–82; PULSE 64–85; RESP 12–18; TEMP 35.9–36.8; O2SAT 84–96
[2021-05-06] MEDS: IPRATROPIUM BR 0.02% INH SOLN 0.5 MG/2.5 ML VIAL INHALATION ×4 (01:45→21:30)
[2021-05-06] MEDS: ALBUTEROL SULFATE NEB 2.5 MG/0.5 ML INH INHALATION ×4 (01:45→21:30)
[2021-05-06 07:06] LABS: Hematocrit 38.6 % (37.0-47.0); Hemoglobin 13.2 g/dL (12.0-15.0); Mean Corpuscular HGB Conc 34.2 g/dl (32-36); Mean Corpuscular Hemoglobin 29.8 pg (26-34); Mean Corpuscular Volume 87.1 fl (80-100); Platelet Count Result 365 k/mm3 (150-375); Red Blood Count 4.43 M/mm3 (4.2-5.4); Red Cell Distribution Width 12.4 % (11.5-14.5); White Blood Count 8.5 K/mm3 (4.5-10.0)
[2021-05-06 07:24] LABS: Alanine Aminotransferase 160 U/L (4-35); Anion Gap 9 mmol/L (8-16); Blood Urea Nitrogen 18 mg/dL (7-17); Calcium 9.3 mg/dL (8.4-10.2); Carbon Dioxide 27 mmol/L (22-30); Chloride 99 mmol/L (98-107); Estimated CRCL calculation 68 ml/min; Estimated Glomerular Filt Rate > 60; Glucose 137 mg/dL (65-110); Lactate Dehydrogenase 1186 U/L (313-618); Potassium 3.6 mmol/L (3.4-5.0); Sodium 135 mmol/L (137-145)
[2021-05-06 07:30] LABS: D Dimer 0.94 ug/mL (<0.48)
[2021-05-06] MEDS: ENOXAPARIN 40 MG/0.4 ML SYRINGE SUB-Q (07:59)
[2021-05-06] MEDS: allopurinoL 100 MG TABLET PO (08:00)
[2021-05-06] MEDS: ACIDOPHILUS/BULGARICUS CHEWABLE TABLET 1 TABLET PO (08:01)
[2021-05-06] MEDS: ASPIRIN 81 MG ENTERIC TABLET PO (08:01)
[2021-05-06] MEDS: guaiFENesin 12 HR 600 MG TABCR PO ×2 (08:01→22:19)
[2021-05-06] MEDS: DOXYCYCLINE HYCLATE 100 MG TABLET PO ×2 (08:01→22:18)
--- NOTE | 2021-05-06 12:31 | PM.IMPN ---
Progress Note: A&P Assessment and Plan (1) Acute respiratory failure with hypoxia: Code(s): J96.01 - Acute respiratory failure with hypoxia Status: Acute Assessment and Plan: diagnosed with COVID on 04/24/2021 and not improved, increasing shortness of breath and periods of hypoxia Chest x-ray today shows diffuse infiltrate consistent with COVID pneumonia started on dexamethasone and remdesivir on 05/04 at admission. Today is day 2 of her Remdesivir and steroids. monitoring elevated inflammatory markers persistent 6 L O2 oxygen requirements at admission patient refused baricitinib treatment, but may reconsider if no improvement. continue the doxycycline which was started outpatient (05/01 approx) and ceftriaxone procalcitonin level = 0.1 low risk for sepsis/bacterial infxn. (2) Pneumonia due to COVID-19 virus: Code(s): U07.1 - COVID-19; J12.82 - Pneumonia due to coronavirus disease 2018 Status: Acute Assessment and Plan: possible bacterial pneumonia due to no improvement for many days. continued doxycycline and ceftriaxone (3) Transaminasemia: Code(s): R74.01 - Elevation of levels of liver transaminase levels Status: Acute Assessment and Plan: Likely due to COVID-19 Continue to f/u labs (4) Hypertension: Code(s): I10 - Essential (primary) hypertension Status: Acute Assessment and Plan: BP reviewed 05/06, 120s-140s systolic continue hOME mEDS: ASA, Lisinopril, and statin. (5) Seasonal asthma: Code(s): J45.998 - Other asthma Status: Acute Assessment and Plan: Continue montelukast and inhalers (6) Gastroesophageal reflux disease: Code(s): K21.9 - Gastro-esophageal reflux disease without esophagitis Status: Acute Assessment and Plan: Takes omeprazole at home, continue Protonix (7) Hyperlipidemia: Code(s): E78.5 - Hyperlipidemia, unspecified Status: Chronic Assessment and Plan: Continue statin home medications Subjective Date/time seen: 05/06/21 12:31 Interval history: Admitted 05/05 with COVID-19 pneumonia and respiratory failure. 05/06 visit: Feels a little better. Denied loss of taste or smell. Appetite poor. Generalized fatigue. No fever. Denied sp, swelling, abd pain, diarrhea, bleeding, focal weakness. Review of Systems Review of Systems: All systems reviewed & are unremarkable except as noted in HPI and below Exam Narrative: General: Moderately ill-appearing female supine in bed. Weight: 76.2 kg. BMI: 32.8. HEENT: PERRL, Sclerae anicteric. pink and moist mucous membranes. Oropharynx clear. Neck: Supple. No adenopathy or JVD. Respiratory: Respirations are nonlabored at rest in bed. Mild conversational dyspnea. Diminished lung sounds with minimal scattered posterior LL crackles. No wheezing. Cardiovascular: Regular rate and rhythm with S1-S2. Gastrointestinal: Abdomen is soft, nontender, and nondistended with positive bowel sounds. Skin: Warm and dry. No rash or lesions on limited exam. Extremities: No cyanosis, clubbing, or edema. Radial and pedal pulses intact. Warm with cap refill. Neurological: Alert. Cranial nerves 2-12 are grossly intact. Psychiatric: Ox4. Appropriate mood and affect. Objective Data Vital Signs Vital Signs: Vital Signs - 24 hr 05/05/21 16:00 05/05/21 17:16 05/05/21 20:00 Temperature 97.5 F L 97.4 F L Pulse Rate 78 83 83 Respiratory Rate 16 18 Blood Pressure 131/76 132/71 Pulse Oximetry 93 90 Pulse Oximetry [With Activity During Therapy Session] 05/05/21 20:05 05/05/21 20:50 05/05/21 20:59 Temperature Pulse Rate 75 72 75 Respiratory Rate 16 16 16 Blood Pressure Pulse Oximetry 93 Pulse Oximetry [With Activity During Therapy Session] 05/05/21 23:20 05/06/21 00:00 05/06/21 01:45 Temperature 97.6 F Pulse Rate 73 76 Respiratory Rate 18 16 Blood Pressure 124/68 Pulse Oximetry 92 91
[2021-05-06] MEDS: ROSUVASTATIN 10 MG TABLET 20 MG PO (22:15)
[2021-05-06] MEDS: REMDESIVIR 100 MG/NS 250 ML 100 MG/250 ML BAG 250 MG IVPB (22:16)
[2021-05-06] MEDS: PANTOPRAZOLE 40 MG TABLET PO (22:19)
[2021-05-06] MEDS: lisinopriL 5 MG TABLET PO (22:19)
[2021-05-06] MEDS: MONTELUKAST SODIUM 10 MG TABLET PO (22:20)
[2021-05-07] VITALS (15 sets, daily range): BP systolic 106–132; BP diastolic 61–72; PULSE 67–89; RESP 12–21; TEMP 35.5–36.7; O2SAT 90–95
[2021-05-07] MEDS: IPRATROPIUM BR 0.02% INH SOLN 0.5 MG/2.5 ML VIAL INHALATION ×4 (02:59→20:17)
[2021-05-07] MEDS: ALBUTEROL SULFATE NEB 2.5 MG/0.5 ML INH INHALATION ×4 (02:59→20:17)
[2021-05-07 06:39] LABS: Hematocrit 38.9 % (37.0-47.0); Hemoglobin 13.1 g/dL (12.0-15.0); Mean Corpuscular HGB Conc 33.7 g/dl (32-36); Mean Corpuscular Hemoglobin 29.6 pg (26-34); Platelet Count Result 453 k/mm3 (150-375); Red Blood Count 4.42 M/mm3 (4.2-5.4); Red Cell Distribution Width 12.4 % (11.5-14.5); White Blood Count 12.7 K/mm3 (4.5-10.0)
[2021-05-07 06:43] LABS: Lactic Acid Reflex 1.6 mmol/L (0.7-2.1)
[2021-05-07 06:44] LABS: INR 1.1
[2021-05-07 06:48] LABS: Alanine Aminotransferase 128 U/L (4-35); Albumin Level 3.8 g/dL (3.5-5.1); Alkaline Phosphatase 98 U/L (38-126); Anion Gap 10 mmol/L (8-16); Aspartate Amino Transferase 64 U/L (14-36); Bilirubin,Total 0.8 mg/dL (0.2-1.3); Blood Urea Nitrogen 19 mg/dL (7-17); CRP 3.3 mg/dL (<1.0); Calcium 9.2 mg/dL (8.4-10.2); Carbon Dioxide 28 mmol/L (22-30); Chloride 98 mmol/L (98-107); Estimated CRCL calculation 68 ml/min; Estimated Glomerular Filt Rate > 60; Glucose 117 mg/dL (65-110); Lactate Dehydrogenase 1210 U/L (313-618); Potassium 3.4 mmol/L (3.4-5.0); Sodium 136 mmol/L (137-145)
[2021-05-07] MEDS: DOXYCYCLINE HYCLATE 100 MG TABLET PO ×2 (08:04→20:48)
[2021-05-07] MEDS: ENOXAPARIN 40 MG/0.4 ML SYRINGE SUB-Q (08:04)
[2021-05-07] MEDS: allopurinoL 100 MG TABLET PO (08:04)
[2021-05-07] MEDS: ASPIRIN 81 MG ENTERIC TABLET PO (08:04)
[2021-05-07] MEDS: guaiFENesin 12 HR 600 MG TABCR PO ×2 (08:04→20:49)
[2021-05-07] MEDS: ACIDOPHILUS/BULGARICUS CHEWABLE TABLET 1 TABLET PO (08:04)
--- NOTE | 2021-05-07 15:35 | P.PNIM_ITS ---
Progress Note: A&P Assessment and Plan (1) Acute respiratory failure with hypoxia: Code(s): J96.01 - Acute respiratory failure with hypoxia Status: Acute Assessment and Plan: * diagnosed with COVID on 04/24/2021 and not improved, increasing shortness of breath and periods of hypoxia * Chest x-ray (05/06/21): Stable diffuse bilateral airspace disease, compatible with pneumonia. Edema less favored. * dexamethasone and remdesivir day 3 * elevated inflammatory markers: Ferritin 904, LDH 1210, CRP 3.3 * persistent 4 L O2 oxygen requirements * patient refused baricitinib treatment, but may reconsider if no improvement. * continue the doxycycline which was started outpatient (05/01 approx) * procalcitonin level = 0.1 low risk for sepsis/bacterial infxn. (2) Pneumonia due to COVID-19 virus: Code(s): U07.1 - COVID-19; J12.82 - Pneumonia due to coronavirus disease 2018 Status: Acute Assessment and Plan: * possible bacterial pneumonia due to no improvement for many days. * continued doxycycline * Procal is low, bacterial infection highly unlikely at this point (3) Transaminasemia: Code(s): R74.01 - Elevation of levels of liver transaminase levels Status: Acute Assessment and Plan: * AST/ALT 64/128 * Hep panel negative * Likely due to COVID-19 * Continue to trend (4) Hypertension: Code(s): I10 - Essential (primary) hypertension Status: Acute Assessment and Plan: * BP 125/70 * continue home medications: Lisinopril 5mg PO HS * Trend BP * Adjust medication as needed (5) Seasonal asthma: Code(s): J45.998 - Other asthma Status: Acute Assessment and Plan: * Continue montelukast and inhalers (6) Gastroesophageal reflux disease: Code(s): K21.9 - Gastro-esophageal reflux disease without esophagitis Status: Acute Assessment and Plan: * Takes omeprazole at home, continue Protonix (7) Hyperlipidemia: Code(s): E78.5 - Hyperlipidemia, unspecified Status: Chronic Assessment and Plan: * Continue rosuvastatin 20mg PO HS home medications (8) Thrombocytosis: Code(s): D75.839 - Thrombocytosis, unspecified Status: Acute Assessment and Plan: * Platelets trending up * Might need to increase Lovenox * Trend labs Time Spent With Patient Time with patient: 25 - 35 minutes Subjective Date/time seen: 05/07/21 15:45 Interval history: Date/Time: 05/04/21 17:30 Narrative: This is a 60-year-old female with hypertension, hyperlipidemia, and s easonal asthma who presented to the emergency department earlier today via private vehicle from home for evaluation of shortness of breath and low oxygen saturations. She has not been feeling well for about 10 days with malaise, myalgias, nonproductive cough, nausea, decreased appetite, and fever up to 103.5? F. She tested positive for COVID 19 on 04/24/2021 and she was prescribed a Z-Gurjit and Tessalon Perles the following day. Unfortunately her symptoms did not improve and in fact they continued to worsen and she was seen in the emergency department at [facility] 3 days ago at which time she was diagnosed with pneumonia. She was discharged with prescriptions for a Medrol Dosepak as well as doxycycline and she was told to monitor her pulse ox. Her SpO2 has been dropping down into the 70s with coughing jags which prompted her
--- NOTE | 2021-05-07 15:35 | PM.IMPN ---
Progress Note: A&P Assessment and Plan (1) Acute respiratory failure with hypoxia: Code(s): J96.01 - Acute respiratory failure with hypoxia Status: Acute Assessment and Plan: diagnosed with COVID on 04/24/2021 and not improved, increasing shortness of breath and periods of hypoxia Chest x-ray (05/06/21): Stable diffuse bilateral airspace disease, compatible with pneumonia. Edema less favored. dexamethasone and remdesivir day 3 elevated inflammatory markers: Ferritin 904, LDH 1210, CRP 3.3 persistent 4 L O2 oxygen requirements patient refused baricitinib treatment, but may reconsider if no improvement. continue the doxycycline which was started outpatient (05/01 approx) procalcitonin level = 0.1 low risk for sepsis/bacterial infxn. (2) Pneumonia due to COVID-19 virus: Code(s): U07.1 - COVID-19; J12.82 - Pneumonia due to coronavirus disease 2018 Status: Acute Assessment and Plan: possible bacterial pneumonia due to no improvement for many days. continued doxycycline Procal is low, bacterial infection highly unlikely at this point (3) Transaminasemia: Code(s): R74.01 - Elevation of levels of liver transaminase levels Status: Acute Assessment and Plan: AST/ALT 64/128 Hep panel negative Likely due to COVID-19 Continue to trend (4) Hypertension: Code(s): I10 - Essential (primary) hypertension Status: Acute Assessment and Plan: BP 125/70 continue home medications: Lisinopril 5mg PO HS Trend BP Adjust medication as needed (5) Seasonal asthma: Code(s): J45.998 - Other asthma Status: Acute Assessment and Plan: Continue montelukast and inhalers (6) Gastroesophageal reflux disease: Code(s): K21.9 - Gastro-esophageal reflux disease without esophagitis Status: Acute Assessment and Plan: Takes omeprazole at home, continue Protonix (7) Hyperlipidemia: Code(s): E78.5 - Hyperlipidemia, unspecified Status: Chronic Assessment and Plan: Continue rosuvastatin 20mg PO HS home medications (8) Thrombocytosis: Code(s): D75.839 - Thrombocytosis, unspecified Status: Acute Assessment and Plan: Platelets trending up Might need to increase Lovenox Trend labs Time Spent With Patient Time with patient: 25 - 35 minutes Subjective Date/time seen: 05/07/21 15:45 Interval history: Date/Time: 05/04/21 17:30 Narrative: This is a 60-year-old female with hypertension, hyperlipidemia, and seasonal asthma who presented to the emergency department earlier today via private vehicle from home for evaluation of shortness of breath and low oxygen saturations. She has not been feeling well for about 10 days with malaise, myalgias, nonproductive cough, nausea, decreased appetite, and fever up to 103.5? F. She tested positive for COVID 19 on 04/24/2021 and she was prescribed a Z-Gurjit and Tessalon Perles the following day. Unfortunately her symptoms did not improve and in fact they continued to worsen and she was seen in the emergency department at [facility] 3 days ago at which time she was diagnosed with pneumonia. She was discharged with prescriptions for a Medrol Dosepak as well as doxycycline and she was told to monitor her pulse ox. Her SpO2 has been dropping down into the 70s with coughing jags which prompted her to come in today. On arrival to the emergency department her SpO2 was 69% on room air and she was placed on 6 L nasal cannula with improvement in her shortness of breath and saturations. Chest x-ray today showed diffuse airspace disease consistent with COVID pneumonia and she is being admitted in this setting. The patient was not vaccinated for COVID and she did not receive any other treatment prior to admission today other than what is listed above. Date/time seen: 05/05/21 15:01 Ender Roth is
--- NOTE | 2021-05-07 16:24 | PCRCNOTE ---
Window of time for administration has passed. See next scheduled administration.
[2021-05-07 18:52] LABS: SARS-CoV-2 RNA PCR Negative
[2021-05-07] MEDS: MONTELUKAST SODIUM 10 MG TABLET PO (20:48)
[2021-05-07] MEDS: ROSUVASTATIN 10 MG TABLET 20 MG PO (20:48)
[2021-05-07] MEDS: lisinopriL 5 MG TABLET PO (20:49)
[2021-05-07] MEDS: PANTOPRAZOLE 40 MG TABLET PO (20:49)
[2021-05-08] VITALS (14 sets, daily range): BP systolic 121–129; BP diastolic 67–77; PULSE 68–106; RESP 16–18; TEMP 36.2–36.6; O2SAT 90–94
[2021-05-08] MEDS: ALBUTEROL SULFATE NEB 2.5 MG/0.5 ML INH INHALATION ×4 (02:15→20:58)
[2021-05-08] MEDS: IPRATROPIUM BR 0.02% INH SOLN 0.5 MG/2.5 ML VIAL INHALATION ×4 (02:15→20:58)
[2021-05-08 06:56] LABS: Hematocrit 41.1 % (37.0-47.0); Hemoglobin 13.5 g/dL (12.0-15.0); INR 1.1; Mean Corpuscular HGB Conc 32.8 g/dl (32-36); Mean Corpuscular Hemoglobin 29.9 pg (26-34); Mean Corpuscular Volume 90.9 fl (80-100); Mean Platelet Volume 8.9 fl (7.4-10.4); Platelet Count Result 486 k/mm3 (150-375); Prothrombin Time 13.9 Seconds (11.1-14.7); Red Blood Count 4.52 M/mm3 (4.2-5.4); Red Cell Distribution Width 12.5 % (11.5-14.5); White Blood Count 14.2 K/mm3 (4.5-10.0)
[2021-05-08 07:02] LABS: Alanine Aminotransferase 111 U/L (4-35); Albumin Level 3.9 g/dL (3.5-5.1); Alkaline Phosphatase 98 U/L (38-126); Aspartate Amino Transferase 66 U/L (14-36); Bilirubin,Total 0.8 mg/dL (0.2-1.3); Magnesium 1.9 mg/dL (1.6-2.3)
[2021-05-08 07:03] LABS: Anion Gap 9 mmol/L (8-16); Blood Urea Nitrogen 20 mg/dL (7-17); CRP 3.4 mg/dL (<1.0); Calcium 9.6 mg/dL (8.4-10.2); Carbon Dioxide 31 mmol/L (22-30); Chloride 96 mmol/L (98-107); Estimated CRCL calculation 60 ml/min; Estimated Glomerular Filt Rate > 60; Glucose 97 mg/dL (65-110); Lactate Dehydrogenase 1315 U/L (313-618); Potassium 3.7 mmol/L (3.4-5.0); Sodium 136 mmol/L (137-145)
[2021-05-08 08:42] LABS: NT Pro B Type Natriuretic Pept 41 pg/mL (5-100)
[2021-05-08] MEDS: ACIDOPHILUS/BULGARICUS CHEWABLE TABLET 1 TABLET PO (09:14)
[2021-05-08] MEDS: ENOXAPARIN 40 MG/0.4 ML SYRINGE SUB-Q (09:14)
[2021-05-08] MEDS: DOXYCYCLINE HYCLATE 100 MG TABLET PO ×2 (09:14→21:34)
[2021-05-08] MEDS: allopurinoL 100 MG TABLET PO (09:14)
[2021-05-08] MEDS: ASPIRIN 81 MG ENTERIC TABLET PO (09:14)
[2021-05-08] MEDS: guaiFENesin 12 HR 600 MG TABCR PO ×2 (09:14→21:33)
--- NOTE | 2021-05-08 10:00 | PM.IMPN ---
Progress Note: A&P Assessment and Plan (1) Acute respiratory failure with hypoxia: Code(s): J96.01 - Acute respiratory failure with hypoxia Status: Acute Assessment and Plan: diagnosed with COVID on 04/24/2021 and not improved, increasing shortness of breath and periods of hypoxia Chest x-ray (05/08/21): Stable diffuse lung disease, consistent with COVID-19 pneumonia. dexamethasone and remdesivir day 4 elevated inflammatory markers: Ferritin 620, LDH 1315, CRP 3.4 persistent 4 L O2 oxygen requirements patient refused baricitinib or tocilizumab at this time Reiterated to the patient that she may need to consider these therapies sooner than later. continue the doxycycline which was started outpatient (05/01 approx) procalcitonin level = 0.1 low risk for sepsis/bacterial infxn. (2) Pneumonia due to COVID-19 virus: Code(s): U07.1 - COVID-19; J12.82 - Pneumonia due to coronavirus disease 2018 Status: Acute Assessment and Plan: possible bacterial pneumonia due to no improvement for many days. continued doxycycline Procal is low, bacterial infection highly unlikely at this point (3) Transaminasemia: Code(s): R74.01 - Elevation of levels of liver transaminase levels Status: Acute Assessment and Plan: AST/ALT 66/111 Hep panel negative Likely due to COVID-19 Continue to trend (4) Hypertension: Code(s): I10 - Essential (primary) hypertension Status: Acute Assessment and Plan: BP 129/67 continue home medications: Lisinopril 5mg PO HS Trend BP Adjust medication as needed (5) Seasonal asthma: Code(s): J45.998 - Other asthma Status: Acute Assessment and Plan: Continue montelukast and inhalers (6) Gastroesophageal reflux disease: Code(s): K21.9 - Gastro-esophageal reflux disease without esophagitis Status: Acute Assessment and Plan: Takes omeprazole at home, continue Protonix (7) Hyperlipidemia: Code(s): E78.5 - Hyperlipidemia, unspecified Status: Chronic Assessment and Plan: Continue rosuvastatin 20mg PO HS home medications (8) Thrombocytosis: Code(s): D75.839 - Thrombocytosis, unspecified Status: Acute Assessment and Plan: Platelets trending up today 486 ASA 81mg PO daily Trend labs (9) Leukocytosis: Code(s): D72.829 - Elevated white blood cell count, unspecified Status: Acute Assessment and Plan: WBC today 14.2 Trending up Probably related to steroid use Continue to trend Time Spent With Patient Time with patient: 25 - 35 minutes Subjective Date/time seen: 05/08/21 10:00 Interval history: Date/Time: 05/04/21 17:30 Narrative: This is a 60-year-old female with hypertension, hyperlipidemia, and seasonal asthma who presented to the emergency department earlier today via private vehicle from home for evaluation of shortness of breath and low oxygen saturations. She has not been feeling well for about 10 days with malaise, myalgias, nonproductive cough, nausea, decreased appetite, and fever up to 103.5? F. She tested positive for COVID 19 on 04/24/2021 and she was prescribed a Z-Gurjit and Tessalon Perles the following day. Unfortunately her symptoms did not improve and in fact they continued to worsen and she was seen in the emergency department at [facility] 3 days ago at which time she was diagnosed with pneumonia. She was discharged with prescriptions for a Medrol Dosepak as well as doxycycline and she was told to monitor her pulse ox. Her SpO2 has been dropping down into the 70s with coughing jags which prompted her to come in today. On arrival to the emergency department her SpO2 was 69% on room air and she was placed on 6 L nasal cannula with improvement in her shortness of breath and saturations. Chest x-ray today showed diffuse airspace dise
--- NOTE | 2021-05-08 10:00 | P.PNIM_ITS ---
Progress Note: A&P Assessment and Plan (1) Acute respiratory failure with hypoxia: Code(s): J96.01 - Acute respiratory failure with hypoxia Status: Acute Assessment and Plan: * diagnosed with COVID on 04/24/2021 and not improved, increasing shortness of breath and periods of hypoxia * Chest x-ray (05/08/21): Stable diffuse lung disease, consistent with COVID-19 pneumonia. * dexamethasone and remdesivir day 4 * elevated inflammatory markers: Ferritin 620, LDH 1315, CRP 3.4 * persistent 4 L O2 oxygen requirements * patient refused baricitinib or tocilizumab at this time * Reiterated to the patient that she may need to consider these therapies sooner than later. * continue the doxycycline which was started outpatient (05/01 approx) * procalcitonin level = 0.1 low risk for sepsis/bacterial infxn. (2) Pneumonia due to COVID-19 virus: Code(s): U07.1 - COVID-19; J12.82 - Pneumonia due to coronavirus disease 2018 Status: Acute Assessment and Plan: * possible bacterial pneumonia due to no improvement for many days. * continued doxycycline * Procal is low, bacterial infection highly unlikely at this point (3) Transaminasemia: Code(s): R74.01 - Elevation of levels of liver transaminase levels Status: Acute Assessment and Plan: * AST/ALT 66/111 * Hep panel negative * Likely due to COVID-19 * Continue to trend (4) Hypertension: Code(s): I10 - Essential (primary) hypertension Status: Acute Assessment and Plan: * BP 129/67 * continue home medications: Lisinopril 5mg PO HS * Trend BP * Adjust medication as needed (5) Seasonal asthma: Code(s): J45.998 - Other asthma Status: Acute Assessment and Plan: * Continue montelukast and inhalers (6) Gastroesophageal reflux disease: Code(s): K21.9 - Gastro-esophageal reflux disease without esophagitis Status: Acute Assessment and Plan: * Takes omeprazole at home, continue Protonix (7) Hyperlipidemia: Code(s): E78.5 - Hyperlipidemia, unspecified Status: Chronic Assessment and Plan: * Continue rosuvastatin 20mg PO HS home medications (8) Thrombocytosis: Code(s): D75.839 - Thrombocytosis, unspecified Status: Acute Assessment and Plan: * Platelets trending up today 486 * ASA 81mg PO daily * Trend labs (9) Leukocytosis: Code(s): D72.829 - Elevated white blood cell count, unspecified Status: Acute Assessment and Plan: * WBC today 14.2 * Trending up * Probably related to steroid use * Continue to trend Time Spent With Patient Time with patient: 25 - 35 minutes Subjective Date/time seen: 05/08/21 10:00 Interval history: Date/Time: 05/04/21 17:30 Narrative: This is a 60-year-old female with hypertension, hyperlipidemia, and seasonal asthma who presented to the emergency department earlier today via private vehicle from home for evaluation of shortness of breath and low oxygen saturations. She has not been feeling well for about 10 days with malaise, myalgias, nonproductive cough, nausea, decreased appetite, and fever up to 103.5? F. She tested positive for COVID 19 on 04/24/2021 and she was prescribed a Z-Gurjit and Tessalon Perles the following day. Unfortunately her symptoms did not improve and in fact they continued to worsen and s
--- NOTE | 2021-05-08 14:08 | PCOTNOTE ---
Per RN, patient's mother sick with covid-19 and hospitalized on same floor in room 309. Patient's mother is on comfort measures and RN requested to skip therapy today as patient is visiting with her mother in her room and is emotional and grieving. Will continue plan of care tomorrow, 05/09/21.
[2021-05-08] MEDS: ROSUVASTATIN 10 MG TABLET 20 MG PO (21:33)
[2021-05-08] MEDS: PANTOPRAZOLE 40 MG TABLET PO (21:34)
[2021-05-08] MEDS: lisinopriL 5 MG TABLET PO (21:34)
[2021-05-08] MEDS: MONTELUKAST SODIUM 10 MG TABLET PO (21:34)
[2021-05-09] VITALS (21 sets, daily range): BP systolic 91–121; BP diastolic 54–70; PULSE 65–109; RESP 18–28; TEMP 36.2–37.2; O2SAT 82–94
[2021-05-09] MEDS: ALBUTEROL SULFATE NEB 2.5 MG/0.5 ML INH INHALATION ×3 (02:32→14:13)
[2021-05-09] MEDS: IPRATROPIUM BR 0.02% INH SOLN 0.5 MG/2.5 ML VIAL INHALATION ×3 (02:32→14:13)
[2021-05-09 06:26] LABS: Basophils Absolute Auto 0.1 K/mm3 (0.0-0.1); Basophils Percent Auto 0.7 % (0.2-1.2); Eosinophils Absolute Auto 0.2 K/mm3 (0-0.3); Eosinophils Percent Auto 1.2 % (0-4.4); Hematocrit 37.7 % (37.0-47.0); Hemoglobin 12.7 g/dL (12.0-15.0); Immature Granulocyte Absolute 0.62 K/mm3 (0.00-0.031); Immature Granulocyte Percent A 4.7 % (0-0.5); Lymphocytes Percent Auto 7.6 % (18.3-44.2); Mean Corpuscular HGB Conc 33.7 g/dl (32-36); Mean Corpuscular Hemoglobin 29.8 pg (26-34); Mean Corpuscular Volume 88.5 fl (80-100); Monocytes Absolute Auto 0.7 K/mm3 (0.1-0.6); Monocytes Percent Auto 5.4 % (2.6-8.5); Neutrophils Absolute Auto 10.6 K/mm3 (1.3-6.7); Neutrophils Percent Auto 80.4 % (45.5-73.1); Platelet Count Result 440 k/mm3 (150-375); Red Blood Count 4.26 M/mm3 (4.2-5.4); Red Cell Distribution Width 12.5 % (11.5-14.5); White Blood Count 13.1 K/mm3 (4.5-10.0)
[2021-05-09 06:56] LABS: Alanine Aminotransferase 96 U/L (4-35); Albumin Level 3.5 g/dL (3.5-5.1); Alkaline Phosphatase 86 U/L (38-126); Anion Gap 8 mmol/L (8-16); Aspartate Amino Transferase 59 U/L (14-36); Bilirubin,Total 0.8 mg/dL (0.2-1.3); Blood Urea Nitrogen 16 mg/dL (7-17); CRP 6.4 mg/dL (<1.0); Calcium 9.3 mg/dL (8.4-10.2); Carbon Dioxide 31 mmol/L (22-30); Chloride 97 mmol/L (98-107); Estimated CRCL calculation 68 ml/min; Estimated Glomerular Filt Rate > 60; Glucose 100 mg/dL (65-110); Lactate Dehydrogenase 1164 U/L (313-618); Potassium 3.5 mmol/L (3.4-5.0); Sodium 136 mmol/L (137-145)
[2021-05-09 07:25] LABS: D Dimer 0.62 ug/mL (<0.48)
[2021-05-09] MEDS: allopurinoL 100 MG TABLET PO (08:56)
[2021-05-09] MEDS: ACIDOPHILUS/BULGARICUS CHEWABLE TABLET 1 TABLET PO (08:57)
[2021-05-09] MEDS: DOXYCYCLINE HYCLATE 100 MG TABLET PO (08:57)
[2021-05-09] MEDS: guaiFENesin 12 HR 600 MG TABCR PO ×2 (08:57→20:50)
[2021-05-09] MEDS: ASPIRIN 81 MG ENTERIC TABLET PO (08:57)
[2021-05-09] MEDS: ENOXAPARIN 40 MG/0.4 ML SYRINGE SUB-Q (08:57)
--- NOTE | 2021-05-09 12:00 | P.PNIM_ITS ---
Progress Note: A&P Assessment and Plan (1) Acute respiratory failure with hypoxia: Code(s): J96.01 - Acute respiratory failure with hypoxia Status: Acute Assessment and Plan: * diagnosed with COVID on 04/24/2021 and not improved, increasing shortness of breath and periods of hypoxia * Chest x-ray (05/08/21): Stable diffuse lung disease, consistent with COVID-19 pneumonia. * dexamethasone and remdesivir day 5 extended for 5 more days * elevated inflammatory markers: Ferritin 520, LDH 1164, CRP 6.4 * persistent 4 L O2 oxygen requirements * patient agreed to tocilizumab at this time since oxygen demand has increased * DC doxy at this time and put patient on azithromycin * procalcitonin level = 0.1 low risk for sepsis/bacterial infxn. (2) Pneumonia due to COVID-19 virus: Code(s): U07.1 - COVID-19; J12.82 - Pneumonia due to coronavirus disease 2018 Status: Acute Assessment and Plan: * possible bacterial pneumonia due to no improvement for many days. * continued doxycycline * Procal is low, bacterial infection highly unlikely at this point (3) Transaminasemia: Code(s): R74.01 - Elevation of levels of liver transaminase levels Status: Acute Assessment and Plan: * AST/ALT 59/96 * Hep panel negative * Likely due to COVID-19 * Continue to trend (4) Hypertension: Code(s): I10 - Essential (primary) hypertension Status: Acute Assessment and Plan: * BP 112/60 * continue home medications: Lisinopril 5mg PO HS * Trend BP * Adjust medication as needed (5) Seasonal asthma: Code(s): J45.998 - Other asthma Status: Acute Assessment and Plan: * Continue montelukast and inhalers (6) Gastroesophageal reflux disease: Code(s): K21.9 - Gastro-esophageal reflux disease without esophagitis Status: Acute Assessment and Plan: * Takes omeprazole at home, continue Protonix (7) Hyperlipidemia: Code(s): E78.5 - Hyperlipidemia, unspecified Status: Chronic Assessment and Plan: * Continue rosuvastatin 20mg PO HS home medications (8) Thrombocytosis: Code(s): D75.839 - Thrombocytosis, unspecified Status: Acute Assessment and Plan: * Platelets trending up today 440 * ASA 81mg PO daily * Trend labs (9) Leukocytosis: Code(s): D72.829 - Elevated white blood cell count, unspecified Status: Acute Assessment and Plan: * WBC today 13.1 * Trending up * Probably related to steroid use * Continue to trend Subjective Date/time seen: 05/09/21 12:52 Interval history: Date/Time: 05/04/21 17:30 Narrative: This is a 60-year-old female with hypertension, hyperlipidemia, and seasonal asthma who presented to the emergency department earlier today via private vehicle from home for evaluation of shortness of breath and low oxygen saturations. She has not been feeling well for about 10 days with malaise, myalgias, nonproductive cough, nausea, decreased appetite, and fever up to 103.5? F. She tested positive for COVID 19 on 04/24/2021 and she was prescribed a Z-Gurjit and Tessalon Perles the following day. Unfortunately her symptoms did not improve and in fact they continued to worsen and she was seen in the emergency department at [facility] 3 days ago at which time she was diagnosed with pneumonia. She was dischar
--- NOTE | 2021-05-09 12:00 | PM.IMPN ---
Progress Note: A&P Assessment and Plan (1) Acute respiratory failure with hypoxia: Code(s): J96.01 - Acute respiratory failure with hypoxia Status: Acute Assessment and Plan: diagnosed with COVID on 04/24/2021 and not improved, increasing shortness of breath and periods of hypoxia Chest x-ray (05/08/21): Stable diffuse lung disease, consistent with COVID-19 pneumonia. dexamethasone and remdesivir day 5 extended for 5 more days elevated inflammatory markers: Ferritin 520, LDH 1164, CRP 6.4 persistent 4 L O2 oxygen requirements patient agreed to tocilizumab at this time since oxygen demand has increased DC doxy at this time and put patient on azithromycin procalcitonin level = 0.1 low risk for sepsis/bacterial infxn. (2) Pneumonia due to COVID-19 virus: Code(s): U07.1 - COVID-19; J12.82 - Pneumonia due to coronavirus disease 2018 Status: Acute Assessment and Plan: possible bacterial pneumonia due to no improvement for many days. continued doxycycline Procal is low, bacterial infection highly unlikely at this point (3) Transaminasemia: Code(s): R74.01 - Elevation of levels of liver transaminase levels Status: Acute Assessment and Plan: AST/ALT 59/96 Hep panel negative Likely due to COVID-19 Continue to trend (4) Hypertension: Code(s): I10 - Essential (primary) hypertension Status: Acute Assessment and Plan: BP 112/60 continue home medications: Lisinopril 5mg PO HS Trend BP Adjust medication as needed (5) Seasonal asthma: Code(s): J45.998 - Other asthma Status: Acute Assessment and Plan: Continue montelukast and inhalers (6) Gastroesophageal reflux disease: Code(s): K21.9 - Gastro-esophageal reflux disease without esophagitis Status: Acute Assessment and Plan: Takes omeprazole at home, continue Protonix (7) Hyperlipidemia: Code(s): E78.5 - Hyperlipidemia, unspecified Status: Chronic Assessment and Plan: Continue rosuvastatin 20mg PO HS home medications (8) Thrombocytosis: Code(s): D75.839 - Thrombocytosis, unspecified Status: Acute Assessment and Plan: Platelets trending up today 440 ASA 81mg PO daily Trend labs (9) Leukocytosis: Code(s): D72.829 - Elevated white blood cell count, unspecified Status: Acute Assessment and Plan: WBC today 13.1 Trending up Probably related to steroid use Continue to trend Subjective Date/time seen: 05/09/21 12:52 Interval history: Date/Time: 05/04/21 17:30 Narrative: This is a 60-year-old female with hypertension, hyperlipidemia, and seasonal asthma who presented to the emergency department earlier today via private vehicle from home for evaluation of shortness of breath and low oxygen saturations. She has not been feeling well for about 10 days with malaise, myalgias, nonproductive cough, nausea, decreased appetite, and fever up to 103.5? F. She tested positive for COVID 19 on 04/24/2021 and she was prescribed a Z-Gurjit and Tessalon Perles the following day. Unfortunately her symptoms did not improve and in fact they continued to worsen and she was seen in the emergency department at [facility] 3 days ago at which time she was diagnosed with pneumonia. She was discharged with prescriptions for a Medrol Dosepak as well as doxycycline and she was told to monitor her pulse ox. Her SpO2 has been dropping down into the 70s with coughing jags which prompted her to come in today. On arrival to the emergency department her SpO2 was 69% on room air and she was placed on 6 L nasal cannula with improvement in her shortness of breath and saturations. Chest x-ray today showed diffuse airspace disease consistent with COVID pneumonia and she is being admitted in this setting. The patient was not vaccinated for COVID and s
[2021-05-09] MEDS: SODIUM CHLORIDE 0.9% IVPB (15:19)
[2021-05-09] MEDS: TOCILIZUMAB IVPB (15:19)
[2021-05-09] MEDS: REMDESIVIR 100 MG/NS 250 ML 100 MG/250 ML BAG 250 MG IVPB (16:24)
[2021-05-09] MEDS: PANTOPRAZOLE 40 MG TABLET PO (20:50)
[2021-05-09] MEDS: ROSUVASTATIN 10 MG TABLET 20 MG PO (20:50)
[2021-05-09] MEDS: MONTELUKAST SODIUM 10 MG TABLET PO (20:50)
[2021-05-09] MEDS: lisinopriL 5 MG TABLET PO (20:51)
[2021-05-10] VITALS (16 sets, daily range): BP systolic 98–116; BP diastolic 60–64; PULSE 61–86; RESP 14–20; TEMP 36.2–37.2; O2SAT 90–96
[2021-05-10 06:39] LABS: Basophils Percent Auto 0.2 % (0.2-1.2); Eosinophils Percent Auto 0.2 % (0-4.4); Hematocrit 36.1 % (37.0-47.0); Hemoglobin 11.9 g/dL (12.0-15.0); Immature Granulocyte Absolute 0.68 K/mm3 (0.00-0.031); Immature Granulocyte Percent A 5.1 % (0-0.5); Lymphocytes Absolute Auto 0.74 K/mm3 (0.9-3.2); Lymphocytes Percent Auto 5.5 % (18.3-44.2); Mean Corpuscular Hemoglobin 30.1 pg (26-34); Mean Corpuscular Volume 91.2 fl (80-100); Mean Platelet Volume 9.3 fl (7.4-10.4); Monocytes Absolute Auto 0.7 K/mm3 (0.1-0.6); Monocytes Percent Auto 4.9 % (2.6-8.5); Neutrophils Absolute Auto 11.3 K/mm3 (1.3-6.7); Neutrophils Percent Auto 84.1 % (45.5-73.1); Platelet Count Result 479 k/mm3 (150-375); Red Blood Count 3.96 M/mm3 (4.2-5.4); Red Cell Distribution Width 12.5 % (11.5-14.5); White Blood Count 13.4 K/mm3 (4.5-10.0)
[2021-05-10 06:51] LABS: Prothrombin Time 13.5 Seconds (11.1-14.7)
[2021-05-10 06:53] LABS: Alanine Aminotransferase 90 U/L (4-35); Albumin Level 3.3 g/dL (3.5-5.1); Alkaline Phosphatase 81 U/L (38-126); Anion Gap 5 mmol/L (8-16); Aspartate Amino Transferase 51 U/L (14-36); Bilirubin,Total 0.5 mg/dL (0.2-1.3); Blood Urea Nitrogen 18 mg/dL (7-17); Calcium 9.2 mg/dL (8.4-10.2); Carbon Dioxide 31 mmol/L (22-30); Chloride 99 mmol/L (98-107); Estimated CRCL calculation 68 ml/min; Estimated Glomerular Filt Rate > 60; Glucose 117 mg/dL (65-110); Magnesium 2.3 mg/dL (1.6-2.3); Sodium 135 mmol/L (137-145)
[2021-05-10] MEDS: ASPIRIN 81 MG ENTERIC TABLET PO (08:16)
[2021-05-10] MEDS: ENOXAPARIN 40 MG/0.4 ML SYRINGE SUB-Q (08:16)
[2021-05-10] MEDS: allopurinoL 100 MG TABLET PO (08:16)
[2021-05-10] MEDS: ACIDOPHILUS/BULGARICUS CHEWABLE TABLET 1 TABLET PO (08:16)
[2021-05-10] MEDS: guaiFENesin 12 HR 600 MG TABCR PO ×2 (08:16→21:16)
[2021-05-10] MEDS: ALBUTEROL SULFATE NEB 2.5 MG/0.5 ML INH INHALATION ×3 (09:25→20:35)
[2021-05-10] MEDS: IPRATROPIUM BR 0.02% INH SOLN 0.5 MG/2.5 ML VIAL INHALATION ×3 (09:25→20:35)
[2021-05-10] MEDS: REMDESIVIR 100 MG/NS 250 ML 100 MG/250 ML BAG 250 MG IVPB (10:52)
--- NOTE | 2021-05-10 15:45 | P.PNIM_ITS ---
Progress Note: A&P Assessment and Plan (1) Acute respiratory failure with hypoxia: Code(s): J96.01 - Acute respiratory failure with hypoxia Status: Acute Assessment and Plan: * diagnosed with COVID on 04/24/2021 and not improved, increasing shortness of breath and periods of hypoxia * Chest x-ray (05/08/21): Stable diffuse lung disease, consistent with COVID-19 pneumonia. * dexamethasone changed to BID and remdesivir day 6 * elevated inflammatory markers: Ferritin 520, LDH 1164, CRP 6.4 * persistent 4 L O2 oxygen requirements * patient agreed to tocilizumab at this time since oxygen demand has increased * DC doxy at this time and put patient on azithromycin * procalcitonin level = 0.1 low risk for sepsis/bacterial infxn. (2) Pneumonia due to COVID-19 virus: Code(s): U07.1 - COVID-19; J12.82 - Pneumonia due to coronavirus disease 2018 Status: Acute Assessment and Plan: * possible bacterial pneumonia due to no improvement for many days. * continued doxycycline * Procal is low, bacterial infection highly unlikely at this point (3) Transaminasemia: Code(s): R74.01 - Elevation of levels of liver transaminase levels Status: Acute Assessment and Plan: * AST/ALT 51/90 * Hep panel negative * Likely due to COVID-19 * Continue to trend (4) Hypertension: Code(s): I10 - Essential (primary) hypertension Status: Acute Assessment and Plan: * BP 98/63 * continue home medications: Lisinopril 5mg PO HS * Trend BP * Adjust medication as needed (5) Seasonal asthma: Code(s): J45.998 - Other asthma Status: Acute Assessment and Plan: * Continue montelukast and inhalers (6) Gastroesophageal reflux disease: Code(s): K21.9 - Gastro-esophageal reflux disease without esophagitis Status: Acute Assessment and Plan: * Takes omeprazole at home, continue Protonix (7) Hyperlipidemia: Code(s): E78.5 - Hyperlipidemia, unspecified Status: Chronic Assessment and Plan: * Continue rosuvastatin 20mg PO HS home medications (8) Thrombocytosis: Code(s): D75.839 - Thrombocytosis, unspecified Status: Acute Assessment and Plan: * Platelets trending up today 479 * ASA 81mg PO daily * Trend labs (9) Leukocytosis: Code(s): D72.829 - Elevated white blood cell count, unspecified Status: Acute Assessment and Plan: * WBC today 13.4 * Trending up * Probably related to steroid use * Continue to trend Time Spent With Patient Time with patient: Greater than 35 minutes Subjective Date/time seen: 05/10/21 15:48 Interval history: Date/Time: 05/04/21 17:30 Narrative: This is a 60-year-old female with hypertension, hyperlipidemia, and seasonal asthma who presented to the emergency department earlier today via private vehicle from home for evaluation of shortness of breath and low oxygen saturations. She has not been feeling well for about 10 days with malaise, myalgias, nonproductive cough, nausea, decreased appetite, and fever up to 103.5? F. She tested positive for COVID 19 on 04/24/2021 and she was prescribed a Z-Gurjit and Tessalon Perles the following day. Unfortunately her symptoms did not improve and in fact they continued to worsen and she was seen in the emergency department at [facility] 3 days ago a
--- NOTE | 2021-05-10 15:45 | PM.IMPN ---
Progress Note: A&P Assessment and Plan (1) Acute respiratory failure with hypoxia: Code(s): J96.01 - Acute respiratory failure with hypoxia Status: Acute Assessment and Plan: diagnosed with COVID on 04/24/2021 and not improved, increasing shortness of breath and periods of hypoxia Chest x-ray (05/08/21): Stable diffuse lung disease, consistent with COVID-19 pneumonia. dexamethasone changed to BID and remdesivir day 6 elevated inflammatory markers: Ferritin 520, LDH 1164, CRP 6.4 persistent 4 L O2 oxygen requirements patient agreed to tocilizumab at this time since oxygen demand has increased DC doxy at this time and put patient on azithromycin procalcitonin level = 0.1 low risk for sepsis/bacterial infxn. (2) Pneumonia due to COVID-19 virus: Code(s): U07.1 - COVID-19; J12.82 - Pneumonia due to coronavirus disease 2018 Status: Acute Assessment and Plan: possible bacterial pneumonia due to no improvement for many days. continued doxycycline Procal is low, bacterial infection highly unlikely at this point (3) Transaminasemia: Code(s): R74.01 - Elevation of levels of liver transaminase levels Status: Acute Assessment and Plan: AST/ALT 51/90 Hep panel negative Likely due to COVID-19 Continue to trend (4) Hypertension: Code(s): I10 - Essential (primary) hypertension Status: Acute Assessment and Plan: BP 98/63 continue home medications: Lisinopril 5mg PO HS Trend BP Adjust medication as needed (5) Seasonal asthma: Code(s): J45.998 - Other asthma Status: Acute Assessment and Plan: Continue montelukast and inhalers (6) Gastroesophageal reflux disease: Code(s): K21.9 - Gastro-esophageal reflux disease without esophagitis Status: Acute Assessment and Plan: Takes omeprazole at home, continue Protonix (7) Hyperlipidemia: Code(s): E78.5 - Hyperlipidemia, unspecified Status: Chronic Assessment and Plan: Continue rosuvastatin 20mg PO HS home medications (8) Thrombocytosis: Code(s): D75.839 - Thrombocytosis, unspecified Status: Acute Assessment and Plan: Platelets trending up today 479 ASA 81mg PO daily Trend labs (9) Leukocytosis: Code(s): D72.829 - Elevated white blood cell count, unspecified Status: Acute Assessment and Plan: WBC today 13.4 Trending up Probably related to steroid use Continue to trend Time Spent With Patient Time with patient: Greater than 35 minutes Subjective Date/time seen: 05/10/21 15:48 Interval history: Date/Time: 05/04/21 17:30 Narrative: This is a 60-year-old female with hypertension, hyperlipidemia, and seasonal asthma who presented to the emergency department earlier today via private vehicle from home for evaluation of shortness of breath and low oxygen saturations. She has not been feeling well for about 10 days with malaise, myalgias, nonproductive cough, nausea, decreased appetite, and fever up to 103.5? F. She tested positive for COVID 19 on 04/24/2021 and she was prescribed a Z-Gurjit and Tessalon Perles the following day. Unfortunately her symptoms did not improve and in fact they continued to worsen and she was seen in the emergency department at [facility] 3 days ago at which time she was diagnosed with pneumonia. She was discharged with prescriptions for a Medrol Dosepak as well as doxycycline and she was told to monitor her pulse ox. Her SpO2 has been dropping down into the 70s with coughing jags which prompted her to come in today. On arrival to the emergency department her SpO2 was 69% on room air and she was placed on 6 L nasal cannula with improvement in her shortness of breath and saturations. Chest x-ray today showed diffuse airspace disease consistent with COVID pneumonia and she is being admitted in this
[2021-05-10] MEDS: PANTOPRAZOLE 40 MG TABLET PO (21:16)
[2021-05-10] MEDS: lisinopriL 5 MG TABLET PO (21:16)
[2021-05-10] MEDS: MONTELUKAST SODIUM 10 MG TABLET PO (21:16)
[2021-05-10] MEDS: ROSUVASTATIN 10 MG TABLET 20 MG PO (21:16)
[2021-05-11] VITALS (14 sets, daily range): BP systolic 102–127; BP diastolic 54–76; PULSE 72–101; RESP 16–20; TEMP 36.2–36.8; O2SAT 86–94
[2021-05-11] MEDS: ALBUTEROL SULFATE NEB 2.5 MG/0.5 ML INH INHALATION ×2 (01:50→09:00)
[2021-05-11] MEDS: IPRATROPIUM BR 0.02% INH SOLN 0.5 MG/2.5 ML VIAL INHALATION ×2 (01:50→09:00)
[2021-05-11 06:11] LABS: Basophils Absolute Auto 0.1 K/mm3 (0.0-0.1); Basophils Percent Auto 0.3 % (0.2-1.2); Eosinophils Percent Auto 0.1 % (0-4.4); Hematocrit 36.8 % (37.0-47.0); Hemoglobin 12.1 g/dL (12.0-15.0); Immature Granulocyte Absolute 0.63 K/mm3 (0.00-0.031); Immature Granulocyte Percent A 3.9 % (0-0.5); Mean Corpuscular HGB Conc 32.9 g/dl (32-36); Mean Corpuscular Hemoglobin 29.2 pg (26-34); Mean Corpuscular Volume 88.7 fl (80-100); Mean Platelet Volume 9.2 fl (7.4-10.4); Monocytes Percent Auto 6.2 % (2.6-8.5); Neutrophils Absolute Auto 13.6 K/mm3 (1.3-6.7); Neutrophils Percent Auto 84.5 % (45.5-73.1); Platelet Count Result 556 k/mm3 (150-375); Red Blood Count 4.15 M/mm3 (4.2-5.4); Red Cell Distribution Width 12.5 % (11.5-14.5); White Blood Count 16.1 K/mm3 (4.5-10.0)
[2021-05-11 06:24] LABS: Alanine Aminotransferase 92 U/L (4-35); Albumin Level 3.5 g/dL (3.5-5.1); Alkaline Phosphatase 80 U/L (38-126); Anion Gap 9 mmol/L (8-16); Aspartate Amino Transferase 49 U/L (14-36); Bilirubin,Total 0.5 mg/dL (0.2-1.3); Blood Urea Nitrogen 17 mg/dL (7-17); Calcium 9.4 mg/dL (8.4-10.2); Carbon Dioxide 29 mmol/L (22-30); Chloride 97 mmol/L (98-107); Estimated CRCL calculation 60 ml/min; Estimated Glomerular Filt Rate > 60; Glucose 143 mg/dL (65-110); Magnesium 2.3 mg/dL (1.6-2.3); Sodium 135 mmol/L (137-145)
[2021-05-11 06:31] LABS: Prothrombin Time 13.1 Seconds (11.1-14.7)
[2021-05-11] MEDS: ACIDOPHILUS/BULGARICUS CHEWABLE TABLET 1 TABLET PO (09:35)
[2021-05-11] MEDS: ENOXAPARIN 40 MG/0.4 ML SYRINGE SUB-Q (09:35)
[2021-05-11] MEDS: guaiFENesin 12 HR 600 MG TABCR PO (09:35)
[2021-05-11] MEDS: ASPIRIN 81 MG ENTERIC TABLET PO (09:35)
--- NOTE | 2021-05-11 10:52 | PCNWS ---
Weekly nutritional screen. Patient is tolerating current diet with adequate intake. No weight loss reported. No nutritional needs at this time.
[2021-05-11] MEDS: allopurinoL 100 MG TABLET PO (12:13)
[2021-05-11] MEDS: REMDESIVIR 100 MG/NS 250 ML 100 MG/250 ML BAG 250 MG IVPB (12:13)
--- NOTE | 2021-05-11 12:39 | P.DS_ITS ---
DS: Admitting Diagnosis Discharge Date Date of service 05/11/21 1300 Admitting Diagnosis Covid 19 DS: Discharge Diagnosis Discharge Diagnosis (1) Acute respiratory failure with hypoxia: Code(s): J96.01 - Acute respiratory failure with hypoxia Status: Acute Assessment and Plan: * diagnosed with COVID on 04/24/2021 and not improved, increasing shortness of breath and periods of hypoxia * Chest x-ray (05/08/21): Stable diffuse lung disease, consistent with COVID-19 pneumonia. * dexamethasone changed to BID and remdesivir day 6 * elevated inflammatory markers: Ferritin 520, LDH 1164, CRP 6.4 * persistent 4 L O2 oxygen requirements * patient agreed to tocilizumab at this time since oxygen demand has increased * DC doxy at this time and put patient on azithromycin * procalcitonin level = 0.1 low risk for sepsis/bacterial infxn. (2) Pneumonia due to COVID-19 virus: Code(s): U07.1 - COVID-19; J12.82 - Pneumonia due to coronavirus disease 2018 Status: Acute Assessment and Plan: * possible bacterial pneumonia due to no improvement for many days. * continued doxycycline * Procal is low, bacterial infection highly unlikely at this point (3) Transaminasemia: Code(s): R74.01 - Elevation of levels of liver transaminase levels Status: Acute Assessment and Plan: * AST/ALT 51/90 * Hep panel negative * Likely due to COVID-19 * Continue to trend (4) Hypertension: Code(s): I10 - Essential (primary) hypertension Status: Acute Assessment and Plan: * BP 98/63 * continue home medications: Lisinopril 5mg PO HS * Trend BP * Adjust medication as needed (5) Seasonal asthma: Code(s): J45.998 - Other asthma Status: Acute Assessment and Plan: * Continue montelukast and inhalers (6) Gastroesophageal reflux disease: Code(s): K21.9 - Gastro-esophageal reflux disease without esophagitis Status: Acute Assessment and Plan: * Takes omeprazole at home, continue Protonix (7) Hyperlipidemia: Code(s): E78.5 - Hyperlipidemia, unspecified Status: Chronic Assessment and Plan: * Continue rosuvastatin 20mg PO HS home medications (8) Thrombocytosis: Code(s): D75.839 - Thrombocytosis, unspecified Status: Acute Assessment and Plan: * Platelets trending up today 479 * ASA 81mg PO daily * Trend labs (9) Leukocytosis: Code(s): D72.829 - Elevated white blood cell count, unspecified Status: Acute Assessment and Plan: * WBC today 13.4 * Trending up * Probably related to steroid use * Continue to trend DS: Summary Hospital Course Hospital Course: Patient is a 60-year-old female with a past medical history of gout, hypertension who presented to the ED with complaints shortness of breath. Patient had been diagnosed with COVID 19 on 04/24/2021 and believes that she received from work. She called her primary care provider who prescribed her Z- Gurjit and some Tessalon Pearls. Patient was also seen in the ED and was diagnosed with pneumonia sent home on doxycycline. Patient still doing a better and was admitted here for oxygen therapy and COVID-19 treatment. Patient was started on remdesivir and Decadron. Patient also received Actemra and remdesivir was extended. Patient has been on supplemental oxygen and has be
--- NOTE | 2021-05-11 12:39 | PM.DS ---
DS: Admitting Diagnosis Discharge Date Date of service 05/11/21 1300 Admitting Diagnosis Covid 19 DS: Discharge Diagnosis Discharge Diagnosis (1) Acute respiratory failure with hypoxia: Code(s): J96.01 - Acute respiratory failure with hypoxia Status: Acute Assessment and Plan: diagnosed with COVID on 04/24/2021 and not improved, increasing shortness of breath and periods of hypoxia Chest x-ray (05/08/21): Stable diffuse lung disease, consistent with COVID-19 pneumonia. dexamethasone changed to BID and remdesivir day 6 elevated inflammatory markers: Ferritin 520, LDH 1164, CRP 6.4 persistent 4 L O2 oxygen requirements patient agreed to tocilizumab at this time since oxygen demand has increased DC doxy at this time and put patient on azithromycin procalcitonin level = 0.1 low risk for sepsis/bacterial infxn. (2) Pneumonia due to COVID-19 virus: Code(s): U07.1 - COVID-19; J12.82 - Pneumonia due to coronavirus disease 2018 Status: Acute Assessment and Plan: possible bacterial pneumonia due to no improvement for many days. continued doxycycline Procal is low, bacterial infection highly unlikely at this point (3) Transaminasemia: Code(s): R74.01 - Elevation of levels of liver transaminase levels Status: Acute Assessment and Plan: AST/ALT 51/90 Hep panel negative Likely due to COVID-19 Continue to trend (4) Hypertension: Code(s): I10 - Essential (primary) hypertension Status: Acute Assessment and Plan: BP 98/63 continue home medications: Lisinopril 5mg PO HS Trend BP Adjust medication as needed (5) Seasonal asthma: Code(s): J45.998 - Other asthma Status: Acute Assessment and Plan: Continue montelukast and inhalers (6) Gastroesophageal reflux disease: Code(s): K21.9 - Gastro-esophageal reflux disease without esophagitis Status: Acute Assessment and Plan: Takes omeprazole at home, continue Protonix (7) Hyperlipidemia: Code(s): E78.5 - Hyperlipidemia, unspecified Status: Chronic Assessment and Plan: Continue rosuvastatin 20mg PO HS home medications (8) Thrombocytosis: Code(s): D75.839 - Thrombocytosis, unspecified Status: Acute Assessment and Plan: Platelets trending up today 479 ASA 81mg PO daily Trend labs (9) Leukocytosis: Code(s): D72.829 - Elevated white blood cell count, unspecified Status: Acute Assessment and Plan: WBC today 13.4 Trending up Probably related to steroid use Continue to trend DS: Summary Hospital Course Hospital Course: Patient is a 60-year-old female with a past medical history of gout, hypertension who presented to the ED with complaints shortness of breath. Patient had been diagnosed with COVID 19 on 04/24/2021 and believes that she received from work. She called her primary care provider who prescribed her Z-Gurjit and some Tessalon Pearls. Patient was also seen in the ED and was diagnosed with pneumonia sent home on doxycycline. Patient still doing a better and was admitted here for oxygen therapy and COVID-19 treatment. Patient was started on remdesivir and Decadron. Patient also received Actemra and remdesivir was extended. Patient has been on supplemental oxygen and has been all the way up as far as 9 L. home O2 eval will be performed to see if patient will need oxygen at home. Patient denies chest pain, weakness, abdominal pain, nausea, vomiting, constipation, diarrhea. Patient has been very persistent throughout her stay about going home. I did explain to the patient she will need to get her self a pulse ox and she will also need to finish up a full 10 day course of steroids. On room air patient is sating about 94-95%. Patient also does have a cough which is sometime productive. Labs have been stable. WBC is
--- NOTE | 2021-05-11 13:35 | HOMEO2EVAL ---
Evaluation was performed at [facility] Home Oxygen Evaluation RC: Home Oxygen (O2) Evaluation Start: 05/11/21 12:39 Freq: ONCE Status: Active Protocol: RPE Activity Type Activity Date Activity User E-Sign Co-Sign Detail Recorded Client Recorded Date Recorded By Document 05/11/21 13:00 [email or web address] [email or web address] 05/11/21 13:35 DJO Document 05/11/21 13:01 DJO [email or web address] 05/11/21 13:35 DJO Document 05/11/21 13:03 DJO [email or web address] 05/11/21 13:35 DJO Document 05/11/21 13:04 DJO [email or web address] 05/11/21 13:35 DJO Document 05/11/21 13:05 DJO [email or web address] 05/11/21 13:35 DJO Document 05/11/21 13:15 DJO [email or web address] 05/11/21 13:35 DJO 05/11/21 05/11/21 05/11/21 13:00 13:01 13:03 Home O2 Evaluation Test Phase Resting Resting Exercise Oxygen Delivery Room Air Nasal Cannula Nasal Cannula Oxygen Flow Rate (L/min) 1 1 Pulse Oximetry (90-100 %) 87 L 92 86 L Pulse Rate (60-100 beats/min) 72 101 H Ambulation Distance (feet) Home Oxygen Evaluation Comments Treatment Charges O2 Evaluation - Inpatient 05/11/21 05/11/21 05/11/21 13:04 13:05 13:15 Home O2 Evaluation Test Phase Exercise Exercise Resting Oxygen Delivery Nasal Cannula Nasal Cannula Nasal Cannula Oxygen Flow Rate (L/min) 2 3 1 Pulse Oximetry (90-100 %) 87 L 91 93 Pulse Rate (60-100 beats/min) 99 99 78 Ambulation Distance (feet) 150 Home Oxygen Evaluation Comments PT REQUIRES 1 L AT REST AND 3 L WITH EXERTION Treatment Charges
--- NOTE | 2021-05-11 13:36 | PCRCNOTE ---
PT REQUIRES 1Q L AT REST AND 3 L WITH EXERTION HOME O2. WILL ARRANGE NEW HOME O2 SET UP WITH [facility]. WILL BRING TANK FOR TRANSPORT HOME PRIOR TO D/C.
--- NOTE | 2021-05-11 14:05 | PCOTNOTE ---
Attempted to see patient for skilled OT session this PM. Patient alert and sitting up in bed upon entry. Patient refused all participation in therapy session at this time stating, I'm just done, my doctor says I can possibly leave today. Thanks but no thanks. Will continue OT per POC accordingly.
== END 2021-05-11 16:25 | disposition home or self-care (01) | DRG 177 ==
LOC: ANHED 15:37 → ANH3MEDSUR 05-05 13:32
PROVIDERS: Internal Medicine; Nurse Practitioner; Physician Assistant; Admitting Provider Internal Medicine; Emergency Provider Emergency Medicine; PCP Nurse Practitioner Family; Referring Provider Student in an Organized Health Care Education/Training Program; Visit Provider Nurse Practitioner
DX: U07.1 COVID-19 (principal); J12.82 Pneumonia due to coronavirus disease 2019; J96.01 Acute respiratory failure with hypoxia; Z28.21 Immunization not carried out because of patient refusal; R74.01 Elevation of levels of liver transaminase levels; I10 Essential (primary) hypertension; J45.998 Other asthma; K21.9 Gastro-esophageal reflux disease without esophagitis; E78.5 Hyperlipidemia, unspecified; D75.839 Thrombocytosis, unspecified; D72.829 Elevated white blood cell count, unspecified; T38.0X5A Adverse effect of glucocorticoids and synthetic analogues, initial encounter; Z87.891 Personal history of nicotine dependence; Z79.82 Long term (current) use of aspirin; Z79.899 Other long term (current) drug therapy
CPT/HCPCS: 36415; 36600; 71045; 80048; 80053; 80074; 80076; 82375; 82728; 82805; 82948; 83050; 83605; 83615; 83735; 83880; 84100; 84145; 84460; 84484; 85025; 85027; 85380; 85610; 85730; 86140; 93005; 94618; 94640; 94667; 97110; 97162; 97165; 97530; 99291; A9270; C9803; G0378; J0456; J1100; J1650; Q0249; U0003; U0005

== ENCOUNTER → 2021-06-11 12:27 | Outpatient (CLI) | payer BC, SELFPAY ==
--- NOTE | ~2021-06-11 | US_ITS ---
EXAMINATION: US thyroid EXAM DATE: 06/11/2021 12:44 INDICATION: Thyroid nodule TECHNIQUE: Multiple grayscale and Doppler images of the thyroid were obtained (by a technologist who performed the scan) and subsequently reviewed. Individual nodules and recommendations may be reporte d in accordance with TI-RADS system as designated by the 2017 ACR White Paper TI-RADS committee. The re is no prior study for comparison. FINDINGS: Right there are lobe measures 4.4 x 2.1 x 1.5 cm, the left measuring 5.0 x 1.8 x 1.5 cm. These dimens ions are mildly enlarged. There is mildly diffusely heterogeneous thyroid echogenicity with several s ubcentimeter thyroid nodules not likely clinically significant. IMPRESSION: Multinodular goiter. Return to clinical follow-up and if additional palpable abnormalit y develops a repeat ultrasound can be obtained. Reviewed, dictated and finalized at location A. [employer] IMPRESSION: Multinodular goiter. Return to clinical follow-up and if addition al palpable abnormality develops a repeat ultrasound can be obtained.
== END ==
PROVIDERS: PCP Nurse Practitioner Family; Visit Provider Nurse Practitioner Family
DX: E04.2 Nontoxic multinodular goiter (principal)
CPT/HCPCS: 76536

== ENCOUNTER 2021-06-27 10:18 | Outpatient (CLI) | payer BC, SELFPAY ==
--- NOTE | 2021-06-27 14:00 | WPDPFTINT ---
PFT Procedure Performed PFT Procedure Performed Spirometry with Pre/Post Bronchodilator Plethysmography (Lung Vol) Diffusing Cap (DLCO) Flow Vol Loop PFT Interpretation Lung volumes were measured with the body plethysmography method. The diminished across the board lung volumes are indicative of restrictive respiratory disease. Spirometry showed diminished expiratory flow rates and a normal FEV1 to FVC ratio of 81%, consistent with restrictive respiratory disease. Following administration of a bronchodilator there was no significant increase in expiratory flow rates. Lung diffusion capacity is moderately reduced at 52% predicted. The flow volume loop is consistent with restrictive respiratory disease. Impression: Moderate obstructive airway disease. Moderately reduced lung diffusion capacity.
--- NOTE | 2021-06-27 14:02 | WPDSIXMINUTE ---
Six Minute Walk Procedure Procedure Performed Pulmonary Stress Test (6 min walk) Six Minute Walk This 6 minute walk test was carried out with the patient breathing ambient air. The pre walk oxyhemoglobin saturation was 94%. The patient was able to walk over 457 m with no stops during the testing. During the walk the oxyhemoglobin saturation transiently decreased to 89%. Impression: No evidence of significant oxyhemoglobin desaturation on this testing.
== END 2021-06-27 10:19 | disposition home or self-care (01) ==
LOC: ANHPFT 10:20
PROVIDERS: PCP Nurse Practitioner Family; Visit Provider Nurse Practitioner
DX: Z99.81 Dependence on supplemental oxygen (principal); Z86.16 Personal history of COVID-19
CPT/HCPCS: 94060; 94618; 94726; 94729

== ENCOUNTER 2021-09-09 10:28 | Emergency (ER) | payer BC, SELFPAY ==
[2021-09-09] VITALS (17 sets, daily range): BP systolic 120–142; BP diastolic 75–99; PULSE 82–106; RESP 14–33; TEMP 37.3; O2SAT 92–98
--- NOTE | ~2021-09-09 | CT_ITS ---
EXAMINATION: CT abdomen pelvis w con DATE: 09/09/2021 12:21 INDICATION: Left lower quadrant abdominal pain. Reflux. Diverticulitis. TECHNIQUE: Computed tomography (CT) of the abdomen and pelvis was performed with 100 cc Omnipaque 350 intravenous contrast. The dose-length product was 649.22 mGy-cm. Automated exposure control and iter ative reconstruction technique were employed. COMPARISON: None. FINDINGS: Patchy groundglass opacities of the lower lobes, suspicious for pneumonia. Heart size is no rmal. No significant pleural or pericardial effusion. Small subcentimeter hypodensity of the right he patic lobe, most likely benign. The spleen, pancreas, adrenal glands are unremarkable. There is nonob structing left nephrolithiasis. There is severe right renal atrophy with right renal stones. There is acute diverticulitis of the descending colon without evidence for perforation or abscess. Nonobstruc tive bowel gas pattern. No free air or free fluid. No significant vascular abnormality. No lymphadeno rozina. IMPRESSION: 1. Acute diverticulitis of the descending colon. 2: Patchy groundglass opacities of the lower lobes, suspicious for pneumonia. 3: Bilateral nephrolithiasis with severe atrophy of the right kidney. There is bilateral renal cortic al scarring. Reviewed, dictated and finalized at location A. REPAIRER IMPRESSION: 1. Acute diverticulitis of the descending colon. 2: Patchy groundglass opacities of the lower lobes, suspicious for pneumonia. 3: Bilateral nephrolithiasis with severe atrophy of the right kidney. There is bilateral renal cortical scarring.
[2021-09-09] MEDS: MORPHINE SULFATE (*CRX) 4 MG/ML INJ IV PUSH (11:07)
[2021-09-09] MEDS: SODIUM CHLORIDE 0.9% IV 1,000 ML 999 ML IV CONT (11:07)
[2021-09-09] MEDS: ONDANSETRON INJ 4 MG/2 ML VIAL IV PUSH (11:07)
[2021-09-09 11:12] LABS: Basophils Percent Auto 0.4 % (0.2-1.2); Eosinophils Absolute Auto 0.1 K/mm3 (0-0.3); Eosinophils Percent Auto 1.1 % (0-4.4); Hematocrit 40.5 % (37.0-47.0); Hemoglobin 13.1 g/dL (12.0-15.0); Immature Granulocyte Absolute 0.04 K/mm3 (0.00-0.031); Immature Granulocyte Percent A 0.4 % (0-0.5); Lymphocytes Absolute Auto 1.29 K/mm3 (0.9-3.2); Lymphocytes Percent Auto 11.7 % (18.3-44.2); Mean Corpuscular HGB Conc 32.3 g/dl (32-36); Mean Corpuscular Hemoglobin 29.6 pg (26-34); Mean Corpuscular Volume 91.4 fl (80-100); Mean Platelet Volume 9.5 fl (7.4-10.4); Monocytes Absolute Auto 0.7 K/mm3 (0.1-0.6); Monocytes Percent Auto 6.3 % (2.6-8.5); Neutrophils Absolute Auto 8.9 K/mm3 (1.3-6.7); Neutrophils Percent Auto 80.1 % (45.5-73.1); Platelet Count Result 300 k/mm3 (150-375); Red Blood Count 4.43 M/mm3 (4.2-5.4); Red Cell Distribution Width 12.2 % (11.5-14.5); White Blood Count 11.1 K/mm3 (4.5-10.0)
[2021-09-09 11:19] LABS: Add Urine Microscopic? YES; Appearance Urine Clear (Clear); Bacteria Urine Trace /hpf; Bilirubin Urine Negative (Negative); Blood Urine Negative (Negative); Color Urine Yellow (Yellow); Glucose Urine UA Negative (Negative); Ketones Urine Negative (Negative); Leukocyte Esterase Ur Negative LEU/UL (Negative); Mucus Urine Rare /lpf; Nitrate Urine Negative (Negative); Protein Urine Negative (Negative); RBC Urine 0-2 /hpf (0-2); Specific Grav Ur 1.014 (1.001-1.035); Squamous Epithelial Cell Urine Few /hpf (Few); WBC Urine 0-3 /hpf
[2021-09-09 12:01] LABS: Alanine Aminotransferase 33 U/L (4-35); Albumin Level 4.5 g/dL (3.5-5.1); Alkaline Phosphatase 100 U/L (38-126); Anion Gap 9 mmol/L (8-16); Aspartate Amino Transferase 29 U/L (14-36); Bilirubin,Total 0.4 mg/dL (0.2-1.3); Blood Urea Nitrogen 13 mg/dL (7-17); Calcium 9.7 mg/dL (8.4-10.2); Carbon Dioxide 25 mmol/L (22-30); Chloride 105 mmol/L (98-107); Estimated CRCL calculation 66 ml/min; Estimated Glomerular Filt Rate > 60; Glucose 184 mg/dL (65-110); Lipase 71 U/L (23-300); Sodium 139 mmol/L (137-145)
--- NOTE | 2021-09-09 12:04 | ED.ABDPAIN ---
HPI - Abdominal Pain General Chief Complaint: Abdominal Pain Stated Complaint: abd pain Time Seen by Provider: 09/09/21 10:33 Source: patient and RN notes reviewed Mode of arrival: ambulatory Limitations: no limitations History of Present Illness HPI narrative: This is a 61 year old singaporean mauritanian female who presents for evaluation of left lower abdominal pain. She reports having pain intermittent for 1 week. She woke up with severe pain this morning and it has remained constant. She also reports her pain is radiating to her right abdomen now. She had associated nausea and diaphoresis with her pain. She also has diarrhea. She reports history of diverticulosis but denies history diverticulitis. She denies fever at home. She reports pain is worse with anything that she does .Pain is currently 8/10. Related Data Home Medications Medication Instructions Recorded Confirmed Julián,saliva-B.bif-S.therm 1 cap PO DAILY #0 03/01/21 05/04/21 [Acidophilus Probiotic Blend] albuterol sulfate 2 puff INHALATION Q4-6H PRN 03/01/21 05/04/21 allopurinol 100 mg PO DAILY 03/01/21 05/04/21 aspirin [Aspirin Low Dose] 81 mg PO DAILY 03/01/21 05/04/21 ergocalciferol (vitamin D2) 50,000 unit PO WEEKLY 03/01/21 05/04/21 lisinopril 5 mg PO HS 03/01/21 05/04/21 montelukast 10 mg PO HS 03/01/21 05/04/21 nitrofurantoin monohyd/m-cryst 100 mg PO HS PRN 03/01/21 05/04/21 omeprazole 40 mg PO HS 03/01/21 05/04/21 rosuvastatin 20 mg PO HS 03/01/21 05/04/21 Breztri Aerosphere 2 inh INHALATION BID PRN 05/04/21 05/04/21 Allergies Allergy/AdvReac Type Severity Reaction Status Date / Time No Known Allergies Allergy Verified 09/09/21 10:42 Review of Systems Review of Systems: All systems reviewed & are unremarkable except as noted in HPI and below PMFSH Past Medical History Medical History COVID-19 (04/24/21) Diverticulitis Gastroesophageal reflux disease Hyperlipidemia Hypertension Obesity Seasonal asthma Surgical History Surgical History History of 3 sections History of cervical spinal surgery History of lumbar surgery Family History Family History Other Hypertension Social History Social History (Updated 05/04/21 @ 23:03 by Leonora Tovar PA-C) Social History: Surrogate decision maker: Isac Roth, spouse. Code status: Full code. Smoking packs per day: 0.5 Smoking cigarettes per day: 10.0 Years smoked: 35 Smoking pack-years: 17.50 Smoking status: Former smoker Tobacco type: cigarettes Alcohol intake: current Drinks per week: 1 Substance use: never Substance use type: does not use Additional living arrangements comments: Lives in [place] with her . They have 3 children. Additional occupation/education comments: Employed at a local [employer]. Spiritual care concerns: Yes ([employer]) Exam Const: General: no acute distress and alert Orientation/consciousness: patient oriented x3 Eyes: EOM: EOMs intact bilaterally Chest: Chest palpation & inspection: normal inspection of the chest Resp: Effort & Inspection: normal respiratory effort and no retractions Auscultation: clear to auscultation bilaterally Cardio: Rate: regular rate Rhythm: regular rhythm Heart sounds: no murmurs GI: GI Palp: Yes Soft to palpation, Yes Tenderness to palpation present (GI), No Guarding due to palpation present (GI) and No Rigid due to palpation Auscultation: normal bowel sounds Skin: General skin exam: normal color Rashes: no rashes Neuro: General: patient oriented x3, moves all extremities and CN's II-XI intact bilaterally Psych: Mental Status: mental status grossly normal Affect: normal affect Course Reevaluation(s) Reevaluation #1: I Discussed with patient CT report showing bilateral
[2021-09-09 14:56] LABS: SARS-CoV-2 RNA PCR Negative
== END 2021-09-09 14:10 | disposition home or self-care (01) ==
PROVIDERS: Emergency Provider General Practice; PCP Nurse Practitioner Family
DX: K57.32 Diverticulitis of large intestine without perforation or abscess without bleeding (principal); N20.0 Calculus of kidney; Z20.822 Contact with and (suspected) exposure to COVID-19; E78.5 Hyperlipidemia, unspecified; I10 Essential (primary) hypertension; J45.909 Unspecified asthma, uncomplicated; K21.9 Gastro-esophageal reflux disease without esophagitis; E66.9 Obesity, unspecified; Z68.31 Body mass index [BMI] 31.0-31.9, adult; Z86.16 Personal history of COVID-19; Z79.82 Long term (current) use of aspirin; Z87.891 Personal history of nicotine dependence; N26.1 Atrophy of kidney (terminal)
CPT/HCPCS: 36415; 74177; 80053; 81001; 83690; 85025; 96361; 96365; 96375; 99284; C9803; J0696; J2270; J2405; J7030; Q9967; U0003; U0005

== ENCOUNTER → 2021-10-01 10:19 | Outpatient (CLI) | payer BC, SELFPAY ==
--- NOTE | ~2021-10-01 | XR_ITS ---
EXAMINATION: XR chest 2V 10/01/2021 10:36 INDICATION: Rib pain PROCEDURE: 2 view chest COMPARISON: Comparison to multiple prior studies sequentially, with oldest reviewed study dated 04/20. FINDINGS: The lungs are clear. The cardiomediastinal silhouette is within normal limits. There are no pleural effusions. There is no pneumothorax suspected. IMPRESSION: 1: NO ACUTE CARDIOPULMONARY DISEASE. Reviewed, dictated and finalized at location B.
== END ==
PROVIDERS: PCP Nurse Practitioner Family; Visit Provider Nurse Practitioner Family
DX: R07.81 Pleurodynia (principal)
CPT/HCPCS: 71046

== ENCOUNTER 2022-05-15 14:35 | Emergency (ER) | payer BC, SELFPAY ==
[2022-05-15] VITALS (12 sets, daily range): BP systolic 121–142; BP diastolic 74–96; PULSE 71–95; RESP 14–21; TEMP 36.3; O2SAT 95–97
--- NOTE | ~2022-05-15 | XR_ITS ---
XR chest 2V 05/15/2022 15:17 Indication: Midsternal chest pain. Procedure: PA and lateral views of the chest Comparison: Comparison to multiple prior studies sequentially, with oldest reviewed study dated 04/20. Findings: There are right perihilar infiltrates with peribronchial thickening which appears chronic. Heart size normal. Left lung clear. No pleural effusion or pneumothorax. No acute osseous abnormality . Impression: 1: Chronic right perihilar infiltrates with peribronchial thickening. This may relate to asymmetric e sara, scarring, bronchitis or atypical pneumonia. Consider correlation with CT. Reviewed, dictated and finalized at location B. Impression: 1: Chronic right perihilar infiltrates with peribronchial thickening. This may relate to asymmetric edema, scarring, bronchitis or atypical pneumonia. Conside r correlation with CT.
--- NOTE | ~2022-05-15 | CT_ITS ---
EXAMINATION: CTA chest PE abdomen pel DATE: 05/15/2022 17:52 INDICATION: Chest pain. TECHNIQUE: Computed tomography angiography (CTA) of the chest was performed with 100 mL Omnipaque-350 intravenous contrast timed to evaluate the pulmonary arteries. Coronal maximum intensity projection 3D-reconstructions were created by the technologist. Computed tomography (CT) of the abdomen and pelv is was performed with intravenous contrast. Automated exposure control and iterative reconstruction t echnique were employed. The dose-length product was 772.32 mGy-cm. COMPARISON: CT abdomen and pelvis 09/09/2021 FINDINGS: CTA chest: There are chronic groundglass opacities associated with septal thickening and volume loss involving all lobes. There is mild bronchiectasis in left lower lobe. No pleural effusion. The heart size is normal. No pericardial effusion. There is no pulmonary embolus. There is mild thoracic spondy losis. CT abdomen and pelvis: There is a 4 mm cyst in the liver. The gallbladder is absent. The spleen, panc reas, and adrenal glands are normal. There is severe atrophy of right kidney and mild atrophy of left kidney. There is diverticulosis of the colon without evidence of diverticulitis. There are no dilate d loops of bowel. The appendix is normal. There are no pathologically enlarged lymph nodes. There is no free intraperitoneal fluid. There is a 13 mm fibroid in the uterus. There are changes of posterior fusion procedure from L3 to L5. There is moderate lumbar spondylosis. IMPRESSION: 1. No pulmonary embolus. 2. Diffuse lung disease, consistent with chronic interstitial lung disease in a pattern of nonspecifi c interstitial pneumonia (NSIP), worsened from 12/12/2020. Reviewed, dictated and finalized at location A. IMPRESSION: 1. No pulmonary embolus. 2. Diffuse lung disease, consistent with chronic interstitial lung disease in a pattern of nonspecific interstitial pneumonia (NSIP), worsened from 12/12/2020.
--- NOTE | 2022-05-15 14:37 | ECG_ITS ---
Measurements Intervals [place] Rate: 95 P: 54 FL: 177 QRS: 59 QRSD: 142 T: 42 QT: 376 QTc: 475 Interpretive Statements SINUS RHYTHM RIGHT BUNDLE BRANCH BLOCK [120+ ms QRS DURATION, UPRIGHT V1, 40+ ms S IN I/aVL/V4/V5/V6] COMPARED TO ECG 05/04/2021 11:43:02 NO SIGNIFICANT CHANGES Electronically Signed On 05-15-2022 16:24:01 CDT by Phillip Altamirano M.D.
[2022-05-15 14:55] LABS: Basophils Percent Auto 0.6 % (0.2-1.2); Eosinophils Absolute Auto 0.3 K/mm3 (0-0.3); Eosinophils Percent Auto 3.6 % (0-4.4); Hematocrit 42.6 % (37.0-47.0); Hemoglobin 13.7 g/dL (12.0-15.0); Immature Granulocyte Absolute 0.03 K/mm3 (0.00-0.031); Immature Granulocyte Percent A 0.4 % (0-0.5); Lymphocytes Absolute Auto 1.85 K/mm3 (0.9-3.2); Mean Corpuscular HGB Conc 32.2 g/dl (32-36); Mean Corpuscular Hemoglobin 29.4 pg (26-34); Mean Corpuscular Volume 91.4 fl (80-100); Mean Platelet Volume 9.7 fl (7.4-10.4); Monocytes Absolute Auto 0.4 K/mm3 (0.1-0.6); Monocytes Percent Auto 6.3 % (2.6-8.5); Neutrophils Absolute Auto 4.3 K/mm3 (1.3-6.7); Neutrophils Percent Auto 62.1 % (45.5-73.1); Platelet Count Result 274 k/mm3 (150-375); Red Blood Count 4.66 M/mm3 (4.2-5.4); Red Cell Distribution Width 12.7 % (11.5-14.5); White Blood Count 6.9 K/mm3 (4.5-10.0)
[2022-05-15 15:05] LABS: Alanine Aminotransferase 28 U/L (6-35); Albumin Level 4.4 g/dL (3.5-5.1); Alkaline Phosphatase 77 U/L (38-126); Anion Gap 14 mmol/L (8-16); Aspartate Amino Transferase 30 U/L (14-36); Bilirubin,Total 0.5 mg/dL (0.2-1.3); Blood Urea Nitrogen 11 mg/dL (7-17); Calcium 8.7 mg/dL (8.4-10.2); Carbon Dioxide 25 mmol/L (22-30); Chloride 104 mmol/L (98-107); Estimated CRCL calculation 67 ml/min; Estimated Glomerular Filt Rate > 60; Glucose 116 mg/dL (65-110); Lipase 76 U/L (23-300); Potassium 3.7 mmol/L (3.4-5.0); Sodium 143 mmol/L (137-145)
[2022-05-15 15:06] LABS: INR 1.1; Prothrombin Time 14.1 Seconds (11.1-14.7)
[2022-05-15 15:17] LABS: Troponin I < 0.012 ng/mL (0.000-0.034)
[2022-05-15 15:56] LABS: Partial Thromboplastin Time > 200.0 SECONDS (22.3-36.8)
--- NOTE | 2022-05-15 16:22 | ED.CHESTPAIN ---
HPI - Chest Pain General Chief Complaint: Chest Pain Stated Complaint: chest pressure and QUINTEROS Time Seen by Provider: 05/15/22 15:54 History of Present Illness HPI narrative: 61-year-old female with history of hypertension presented the emergency department for evaluation of multiple complaints including intermittent headache, intermittent throat tightening and intermittent chest pain. Patient states majority of symptoms have been going on for. Patient states when she gets the chest pain it can be you at rest or with exertion. She describes the pain as a chest pressure but also has intermittent sharp chest pain. Patient states last night she was doing the dishes when she had onset of sharp chest pain and had some associated lightheaded and dizziness. Patient reports that the symptoms only lasted just a few seconds and resolved. Patient was able to keep doing her dishes and did not need to stop to rest. Patient reports he has had a stress test within the last few years and this was negative. Patient was having sensations of rapid heart rate and was also given a Holter monitor. Related Data Home Medications Medication Instructions Recorded Confirmed allopurinol 100 mg tablet 100 mg PO DAILY 03/01/21 10/30/21 aspirin 81 mg tablet,delayed 81 mg PO DAILY 03/01/21 10/30/21 release (Asya Low Dose Aspirin) lisinopril 5 mg tablet 5 mg PO HS 03/01/21 10/30/21 montelukast 10 mg tablet 10 mg PO HS 03/01/21 10/30/21 omeprazole 40 mg capsule,delayed 40 mg PO HS 03/01/21 10/30/21 release rosuvastatin 20 mg tablet 20 mg PO HS 03/01/21 10/30/21 budesonide 160 mcg-glycopyr 9 2 inh inhalation BID PRN allergy 05/04/21 10/30/21 mcg-formot 4.8 mcg/actuation HFA induced asthma inhaler (Breztri TenKodphere) Allergies Allergy/AdvReac Type Severity Reaction Status Date / Time No Known Allergies Allergy Verified 05/15/22 15:23 Review of Systems Review of Systems: CONSTITUTIONAL: Denies fever, chills, or sweats. EYES: Denies visual changes, redness, or discharge. ENT: Denies rhinorrhea, congestion, sore throat, or otalgia. CARDIOVASCULAR: See HPI. RESPIRATORY: Denies cough or dyspnea. GASTROINTESTINAL: Denies abdominal pain, nausea, vomiting, or diarrhea. GENITOURINARY: Denies dysuria or hematuria. SKIN: Denies rash or itching. MUSCULOSKELETAL: Denies back pain, joint pain, or myalgia. NEUROLOGIC: See [facility] Past Medical History Medical History COVID-19 (04/24/21) Gastroesophageal reflux disease Hyperlipidemia Hypertension Obesity Seasonal asthma Surgical History Surgical History History of 3 sections History of cervical spinal surgery History of lumbar surgery Family History Family History Father Hypertension Social History Social History Social History: Surrogate decision maker: Isac Roth, spouse. Code status: Full code. Smoking packs per day: 0.5 Smoking cigarettes per day: 10.0 Years smoked: 35 Smoking pack-years: 17.50 Smoking status: Former smoker Tobacco type: cigarettes Alcohol intake: current Drinks per week: 1 Substance use: never Substance use type: does not use Additional living arrangements comments: Lives in [place] with her . They have 3 children. Additional occupation/education comments: Employed at a local [employer]. Spiritual care concerns: Yes ([employer]) Exam Narrative: APPEARANCE: Well appearing, no pain, no distress, well-nourished. HEAD: normocephalic, atraumatic. EYES: PERRLA/EOMI, conjunctivae clear. NOSE: Normal no drainage EARS:TMS clear with good light reflex. THROAT: Pharynx clear, no exudate. NECK: Supple. No adenopathy, no masses. RESPIRATORY: Airway patent, respirations nonlabored. Clear to auscult
[2022-05-15 16:37] LABS: Partial Thromboplastin Time 33.3 SECONDS (22.3-36.8)
[2022-05-15 16:52] LABS: D Dimer 0.52 ug/mL (<0.48)
[2022-05-15 17:29] LABS: NT Pro B Type Natriuretic Pept 26 pg/mL (5-100)
[2022-05-15 17:51] LABS: Troponin I < 0.012 ng/mL (0.000-0.034)
[2022-05-15] MEDS: levoFLOXacin 500 MG TABLET PO (19:07)
== END 2022-05-15 19:11 | disposition home or self-care (01) ==
PROVIDERS: Emergency Medicine; Emergency Provider Emergency Medicine; PCP Nurse Practitioner Family
DX: J84.9 Interstitial pulmonary disease, unspecified (principal); E78.5 Hyperlipidemia, unspecified; I10 Essential (primary) hypertension; J45.909 Unspecified asthma, uncomplicated; K21.9 Gastro-esophageal reflux disease without esophagitis; E66.9 Obesity, unspecified; Z68.32 Body mass index [BMI] 32.0-32.9, adult; Z86.16 Personal history of COVID-19; Z87.891 Personal history of nicotine dependence; Z79.82 Long term (current) use of aspirin
CPT/HCPCS: 36415; 71046; 71275; 74177; 80053; 83690; 83880; 84484; 85025; 85380; 85610; 85730; 93005; 99284; A9270; Q9967

== ENCOUNTER → 2022-07-19 09:24 | Outpatient (CLI) | payer BC, SELFPAY ==
--- NOTE | ~2022-07-19 | CT_ITS ---
CT scan of the Neck Technique: 2.5 mm axial scans were obtained through the neck after intravenous administration of 75 c c Omnipaque 350. Coronal and sagittal reconstructions of the neck were obtained. Dose reduction techn ique was used on this scan by utilizing automated exposure control and iterative reconstruction techn ique. The dose-length product (DLP) was 407.90 mGy-cm. Clinical History: Mass COMPARISON: 07/03/2007 Findings: There is no evidence of any significant cervical lymphadenopathy. Several small, nonenlarged jugulo- digastric and posterior cervical lymph nodes are noted bilaterally. Parapharyngeal spaces appear norm al bilaterally. The parotid and submandibular glands appear normal. The pharyngeal mucosal spaces appear normal. No soft tissue masses are seen in the neck. The thyroid gland appears normal. Images of the lung apices reveal minimal patchy ground glass opacit ies. Extensive cervical spine fixation hardware is present, with probable C4 corpectomy. Impression: No abnormal mass lesion. Postsurgical change of the cervical spine. Reviewed, dictated and finalized at [facility]. INUITY DIRECTOR Impression: No abnormal mass lesion. Postsurgical change of the cervical spine.
[2022-07-19 09:45] LABS: Estimated Glomerular Filt Rate > 60
== END ==
PROVIDERS: PCP Nurse Practitioner Family; Visit Provider Nurse Practitioner
DX: R22.1 Localized swelling, mass and lump, neck (principal)
CPT/HCPCS: 70491; Q9967

== ENCOUNTER 2022-07-29 08:27 | Emergency (ER) | payer BC, SELFPAY ==
--- NOTE | ~2022-07-29 | CT_ITS ---
EXAMINATION: CT abdomen pelvis w con INDICATION: Right upper quadrant pain TECHNIQUE: Computed tomographic images of the abdomen and pelvis were obtained after the administrati on of 100 cc of Omnipaque 350 intravenous contrast. The dose-length product (DLP) was 510.82 mGy-cm. Automated exposure control and iterative reconstruction technique were employed. COMPARISON: 05/15/2022 FINDINGS: Subpleural reticular opacities of the visualized lung bases are consistent with chronic int erstitial lung disease in a pattern of nonspecific interstitial pneumonia. The heart size is normal. Cysts of the liver measure up to 5 mm in the right hepatic lobe. The gallbladder is surgically absent . The spleen, pancreas, and left adrenal gland are normal. A 6 mm mass of the right adrenal gland lik eze reflects an adenoma. Again noted are severe atrophy of the right kidney and mild atrophy of the l eft kidney. No pathologically enlarged abdominal or pelvic lymph nodes are identified. There is no fr ee intraperitoneal gas or evidence of bowel obstruction. The appendix is normal. There are changes of posterior fusion and laminectomy from L3 through L5. Uterine fibroids are noted. There is moderate l umbar spondylosis. IMPRESSION: 1. No CT correlate for the patient's symptoms. Reviewed, dictated and finalized at location B. OPATHOLOGIST
[2022-07-29 08:30] VITALS: BP 141/93; PULSE 83; RESP 14; TEMP 37.1; O2SAT 98
--- NOTE | 2022-07-29 08:51 | ED.ABDPAIN ---
HPI - Abdominal Pain General Chief Complaint: Abdominal Pain Stated Complaint: RUQ pain Time Seen by Provider: 07/29/22 08:33 Source: RN notes reviewed History of Present Illness HPI narrative: Patient presents emergency room from home for abdominal pain. Patient states symptoms began 2 days ago. Pain is located in the right upper quadrant and radiates around to the back is described as sharp and stabbing in nature. Has been associate with nausea vomiting and diarrhea. Patient states nothing makes the pain better or worse. States she has had a history of previous cholecystectomy. States that she did take Advil last night with no relief she denies any fevers or chills chest pain shortness of breath or any other symptoms Related Data Home Medications Medication Instructions Recorded Confirmed allopurinol 100 mg tablet 100 mg PO DAILY 03/01/21 10/30/21 aspirin 81 mg tablet,delayed 81 mg PO DAILY 03/01/21 10/30/21 release (Asya Low Dose Aspirin) lisinopril 5 mg tablet 5 mg PO HS 03/01/21 10/30/21 montelukast 10 mg tablet 10 mg PO HS 03/01/21 10/30/21 omeprazole 40 mg capsule,delayed 40 mg PO HS 03/01/21 10/30/21 release rosuvastatin 20 mg tablet 20 mg PO HS 03/01/21 10/30/21 budesonide 160 mcg-glycopyr 9 2 inh inhalation BID PRN allergy 05/04/21 10/30/21 mcg-formot 4.8 mcg/actuation HFA induced asthma inhaler (Breztri Aerosphere) Allergies Allergy/AdvReac Type Severity Reaction Status Date / Time No Known Allergies Allergy Verified 05/15/22 15:23 Review of Systems Review of Systems: Gen.: Denies fevers or chills ENT: Denies congestion Respiratory: Denies shortness of breath or cough CV: Denies chest pain or palpitations GI: see HPI Musculoskeletal: Denies back pain or muscle pain Neuro: Denies numbness, tingling, weakness or focal weakness Skin: Denies rash Except as documented, all other systems reviewed and negative [facility] Past Medical History Medical History COVID-19 (04/24/21) Gastroesophageal reflux disease Hyperlipidemia Hypertension Obesity Seasonal asthma Surgical History Surgical History History of 3 sections History of cervical spinal surgery History of lumbar surgery Family History Family History Father Hypertension Social History Social History Social History: Surrogate decision maker: Isac Roth, spouse. Code status: Full code. Smoking packs per day: 0.5 Smoking cigarettes per day: 10.0 Years smoked: 35 Smoking pack-years: 17.50 Smoking status: Former smoker Tobacco type: cigarettes Alcohol intake: current Drinks per week: 1 Substance use: never Substance use type: does not use Additional living arrangements comments: Lives in [place] with her . They have 3 children. Additional occupation/education comments: Employed at a [employer]. Spiritual care concerns: Yes ([employer] Hsiehe[employer]) Exam Narrative: APPEARANCE: No acute distress, nontoxic, resting in bed EYES: EOMI HEENT: Normocephalic, atraumatic, OMM RESPIRATORY: No respiratory distress Clear to auscultation bilaterally with no rhonchi wheezing or rales. CARDIOVASCULAR: Regular rate and rhythm without murmurs rubs or gallops. ABDOMINAL: Soft, right lower quadrant no tenderness in left upper quadrant left lower quadrant no rebound or guarding nondistended tender to palpation in right upper quadrant MUSCULOSKELETAl: Moves all extremities. No clubbing, cyanosis or edema. NEURO: Awake and alert. Following commands, speech normal, no focal deficits SKIN:: Warm, dry. No rashes lesions or abrasions PSYCHIATRIC: Normal affect/mood, Course Course Emergency Course: Patient states that they are feeling much better at this time. States abdominal pain h
[2022-07-29 08:59] LABS: Basophils Percent Auto 0.4 % (0.2-1.2); Eosinophils Percent Auto 0.8 % (0-4.4); Hematocrit 43.3 % (37.0-47.0); Hemoglobin 13.8 g/dL (12.0-15.0); Immature Granulocyte Absolute 0.02 K/mm3 (0.00-0.031); Immature Granulocyte Percent A 0.4 % (0-0.5); Lymphocytes Absolute Auto 0.83 K/mm3 (0.9-3.2); Lymphocytes Percent Auto 16.6 % (18.3-44.2); Mean Corpuscular HGB Conc 31.9 g/dl (32-36); Mean Corpuscular Hemoglobin 28.6 pg (26-34); Mean Corpuscular Volume 89.8 fl (80-100); Mean Platelet Volume 9.6 fl (7.4-10.4); Monocytes Absolute Auto 0.5 K/mm3 (0.1-0.6); Monocytes Percent Auto 9.8 % (2.6-8.5); Neutrophils Absolute Auto 3.6 K/mm3 (1.3-6.7); Platelet Count Result 225 k/mm3 (150-375); Red Blood Count 4.82 M/mm3 (4.2-5.4); Red Cell Distribution Width 12.8 % (11.5-14.5)
[2022-07-29 09:04] LABS: Alanine Aminotransferase 67 U/L (6-35); Albumin Level 4.4 g/dL (3.5-5.1); Alkaline Phosphatase 99 U/L (38-126); Anion Gap 8 mmol/L (8-16); Aspartate Amino Transferase 61 U/L (14-36); Bilirubin,Total 0.8 mg/dL (0.2-1.3); Blood Urea Nitrogen 16 mg/dL (7-17); Calcium 8.7 mg/dL (8.4-10.2); Carbon Dioxide 27 mmol/L (22-30); Chloride 103 mmol/L (98-107); Estimated CRCL calculation 59 ml/min; Estimated Glomerular Filt Rate > 60; Glucose 101 mg/dL (65-110); Lipase 33 U/L (23-300); Sodium 138 mmol/L (137-145)
--- NOTE | 2022-07-29 09:21 | PC.NURSE ---
Patient in radiology
[2022-07-29] MEDS: SODIUM CHLORIDE 0.9% IV 1,000 ML 999 ML IV CONT (09:36)
[2022-07-29] MEDS: KETOROLAC 30 MG/ML VIAL (*BKC) IV PUSH (09:36)
[2022-07-29] MEDS: ONDANSETRON INJ 4 MG/2 ML VIAL IV PUSH (09:36)
[2022-07-29 09:49] LABS: Add Urine Microscopic? YES; Appearance Urine Clear (Clear); Bilirubin Urine 1+ (Negative); Blood Urine Trace-Intact (Negative); Color Urine Yellow (Yellow); Glucose Urine UA Negative (Negative); Ketones Urine Trace mg/dL (Negative); Leukocyte Esterase Ur Negative LEU/UL (Negative); Nitrate Urine Negative (Negative); Protein Urine Trace mg/dL (Negative); Specific Grav Ur 1.025 (1.001-1.035); Urobilinogen Urine 0.2 mg/dL (<2.0)
[2022-07-29 10:06] VITALS: TEMP 37.1
[2022-07-29 11:03] LABS: Bacteria Urine Trace /hpf; Mucus Urine Rare /lpf; Squamous Epithelial Cell Urine Moderate /hpf (Few)
[2022-07-29 11:11] VITALS: BP 121/76; PULSE 67; RESP 18; TEMP 36.8; O2SAT 99
== END 2022-07-29 11:15 | disposition home or self-care (01) ==
PROVIDERS: Emergency Provider Emergency Medicine; PCP Nurse Practitioner Family
DX: R10.11 Right upper quadrant pain (principal); R11.0 Nausea; E78.5 Hyperlipidemia, unspecified; J45.909 Unspecified asthma, uncomplicated; I10 Essential (primary) hypertension; K21.9 Gastro-esophageal reflux disease without esophagitis; Z86.16 Personal history of COVID-19; E66.9 Obesity, unspecified; Z68.32 Body mass index [BMI] 32.0-32.9, adult; Z87.891 Personal history of nicotine dependence; Z79.82 Long term (current) use of aspirin
CPT/HCPCS: 36415; 74177; 80053; 81001; 81025; 83690; 85025; 96361; 96374; 96375; 99284; J1885; J2405; J7030; Q9967

== ENCOUNTER 2023-01-16 08:11 | Outpatient (CLI) | payer BC, SELFPAY ==
--- NOTE | ~2023-01-16 | CT_ITS ---
EXAMINATION: CT chest high resolution wo sc DATE: 01/16/2023 08:28 INDICATION: Restrictive lung disease TECHNIQUE: Computed tomography (CT) of the chest was performed without intravenous contrast. The dose -length product (DLP) was 252.42 mGy-cm. Automated exposure control and iterative reconstruction tech nique were employed. COMPARISON: 05/15/2022, 12/12/2020 FINDINGS: Again seen are chronic groundglass opacities of the lungs with a mid and lower lung zone pr edominance. There has been minimal change since the most recent comparison examination. There is mild bronchial wall thickening of the lower lobes. No acute superimposed airspace opacities are identifie d. No pleural effusion or pneumothorax. No pathologically enlarged thoracic lymph nodes are identifie d. The heart size is normal. There is mild thoracic spondylosis. There are changes of cholecystectomy . There is severe atrophy of the right kidney. IMPRESSION: 1. Chronic interstitial lung disease in a pattern of nonspecific interstitial pneumonia (NSIP) withou t significant change. Reviewed, dictated and finalized at location L. IMPRESSION: 1. Chronic interstitial lung disease in a pattern of nonspecific interstitial p neumonia (NSIP) without significant change.
== END 2023-01-16 08:12 ==
PROVIDERS: PCP Nurse Practitioner Family; Visit Provider Nurse Practitioner
DX: J84.9 Interstitial pulmonary disease, unspecified (principal)
CPT/HCPCS: 71250

== ENCOUNTER 2023-02-12 08:24 | Outpatient (CLI) | payer BC, SELFPAY ==
--- NOTE | 2023-02-17 12:49 | P.PCNPFT_ITS ---
PFT Procedure Performed PFT Procedure Performed Spirometry with Pre/Post Bronchodilator Plethysmography (Lung Vol) Diffusing Cap (DLCO) Flow Vol Loop PFT Interpretation DOS: 02/12/2023 REQUESTING: Jessica Colunga [facility] REASON FOR TESTING: 'other disorders of the lung' PULMONARY FUNCTION TESTS Results are reliable and reproducible. Spirometry: pre bronchodilator FEV1 is 1.74 L, 65% predicted, mildly reduced. Pre bronchodilator FEV1 is 1.38 L, 64% predicted, mildly reduced. FEV1/FVC is 79% predicted, normal. FEF 25-75 is 68% predicted, 1.39 L, within the normal range. After bronchodilator administration there is a 1% drop in the FVC, 6% increase in the FEV1, 1.46 L which is 68% predicted. The FEV F20 5-75 increases 27%, becomes 87% predicted, 1.76 L. Lung volumes: total lung capacity is 3.21 L, 72% predicted, mild restriction. Residual volume is 1.31 L, 73% predicted, normal. RV/ TLC is 41%, normal. Normal airway resistance, 112%. Diffusion: DLCO is 14.1, 71%, normal. DLCO /VA is 5.74, 124%, normal. Flow volume loop: Normal. IMPRESSION: This study shows a mild restrictive impairment without obstruction, no significant response to bronchodilator and normal diffusion. No prior study for comparison. Jerilyn Marquez MD
--- NOTE | 2023-02-17 12:55 | WPDSIXMINUTE ---
Six Minute Walk Procedure Procedure Performed Pulmonary Stress Test (6 min walk) Six Minute Walk Six Minute Walk: DATE OF SERVICE: 02/12/2023 REQUESTING: FILOMENA Rendon REASON FOR TESTING: 'other disorders of the lung' SIX MINUTE WALK This test was conducted per ATS guidelines. The initial saturation was 95%, and initial heart rate was 71. The patient walked without stopping, completing 1400 ft/ 476.7 meters. The saturation at the end of testing was 96%, and the heart rate was 99. This study was conducted while the patient was breathing room air. IMPRESSION: This is a normal study. The patient did not require supplemental oxygen with exertion. Jerilyn Marquez MD
== END 2023-02-12 08:25 | disposition home or self-care (01) ==
PROVIDERS: PCP Nurse Practitioner Family; Visit Provider Nurse Practitioner
DX: J98.4 Other disorders of lung (principal); Z99.81 Dependence on supplemental oxygen
CPT/HCPCS: 94060; 94618; 94726; 94729

== ENCOUNTER → 2023-04-07 16:30 | Outpatient (CLI) | payer BC, SELFPAY ==
--- NOTE | ~2023-04-07 | MM_ITS ---
EXAMINATION: MM screening [facility] BI w juan jose HISTORY: Screening TECHNIQUE: Craniocaudal and mediolateral oblique 3-D tomosynthesis images were obtained and synthetic 2-D images were generated. CAD analysis was submitted and interpreted. COMPARISON: Comparison to multiple prior studies sequentially, with oldest reviewed study dated 05/22. BREAST PARENCHYMAL COMPOSITION: There are scattered areas of fibroglandular density. FINDINGS: There is no evidence of suspicious mass, calcification, or architectural distortion to sugg est malignancy in either breast. There has been no suspicious interval change. IMPRESSION: 1. No mammographic evidence of malignancy. 2. Recommend routine screening mammography in one year. BI-RADS Category 1: Negative Reviewed, dictated and finalized at location A.
== END ==
PROVIDERS: PCP Nurse Practitioner Family; Visit Provider Nurse Practitioner Family
DX: Z12.31 Encounter for screening mammogram for malignant neoplasm of breast (principal)
CPT/HCPCS: 77063; 77067

== ENCOUNTER 2023-12-16 14:16 | Outpatient (CLI) | payer BC, SELFPAY ==
--- NOTE | ~2023-12-16 | US_ITS ---
Pelvic ultrasound. Clinical History: Hypertrophy of uterus Technique: Realtime transabdominal scanning of the pelvis was performed. Color flow Doppler and Doppl er spectral analysis were performed. Findings: The uterus is anteverted, and measures 11.6 x 4.4 x 5.1 cm. The endometrial stripe has a t hickness of 5 mm. No focal mass is identified. The right ovary measures 2.3 x 2.0 x 2.2 cm. No significant right ovarian or adnexal mass is seen. The left ovary measures 2.3 x 1.2 x 1.8 cm. No significant left ovarian or adnexal mass is seen. There is no evidence of free fluid in the cul de sac. Impression: No significant abnormality seen. Reviewed, dictated and finalized at [facility]. Impression: No significant abnormality seen.
== END 2023-12-16 14:17 ==
LOC: MICIMG 14:17
PROVIDERS: PCP Nurse Practitioner; Visit Provider Nurse Practitioner
DX: N85.2 Hypertrophy of uterus (principal)
CPT/HCPCS: 76856

== ENCOUNTER 2024-02-02 00:37 | Day surgery (SDC) | payer BC, SELFPAY ==
[2024-01-20 14:36] VITALS: BMI 33.2
--- NOTE | 2024-01-20 14:46 | PC.NURSE ---
Report to the Outpatient Waiting Room, entrance under the green pavilion located off [facility], at time __0900 on date __02/02/24 . Planned Procedure Time: _1100 . Time changes happen often and if your time is changed the preop area will call you the afternoon before. - You and your visitor will be asked to self-screen and do not enter if you have any COVID symptoms. - A mask is optional within the hospital at this time. Patients may have clear liquids (water, carbonated beverages, clear teas, apple juice) until 3 hours prior to surgery with a maximum of 20 ounces. - No food from midnight until time of surgery - Infants may have breast milk until 4 hours before surgery, infant formula 6 hours prior to surgery. - Children will be allowed to drink immediately following surgery. If applicable, please bring a bottle or sippy cup to assist with drinking. Juice, water, soda, and popsicles are readily available. For infants on formula, please bring formula the day of surgery. Pacifiers are allowed. Take the following medications with a SIP of water the morning of surgery: __N/A DO NOT STOP ANY OF YOUR OTHER PRESCRIPTION MEDICATIONS PRIOR TO SURGERY ?EXCEPT THE FOLLOWING Medications to discontinue per physician ___N/A Date to take last dose Please no make-up, nail greenlandic, hairspray, perfume, deodorant, or body powder the day of surgery. No jewelry (including any body piercings) or valuables the day of surgery, leave them at home. Please take a shower or bath the night before, or the morning of, surgery with an antibacterial soap. Wear comfortable, loose fitting clothing. Children are encouraged to wear pajamas. - Jewelry must be removed prior to entering the operating room. Rings and piercings that are not removed may be cut off. - The hospital will not accept responsibility for valuables. - Please leave all valuables, including medications, at home the day of surgery. If you are going home after surgery, a licensed driver courier must drive you home. - NO public transportation without another adult if you receive anesthesia. - We recommend that an adult stay with you for 24 hours following discharge. - We also recommend that you do not drive, make important decision, drink alcoholic beverages, or take any drugs that were not prescribed by your health care provider for at least 24 hours after your discharge time. For Pediatric surgeries, we recommend two adults accompany the child home. Follow any additional instructions given to you from your surgeon. If you or anyone in your household have experienced Covid symptoms in the past week, please notify your surgeon or the nurse liaison at the phone number below for possible testing. Telephone instructions given to _Leny Pike __and asked if any additional questions and then verbalized understanding. Patient advised to call surgeon office or pre surgery nurse liaison [phone] if any additional questions.
[2024-02-02] VITALS (8 sets, daily range): BP systolic 77–141; BP diastolic 53–75; PULSE 40–73; RESP 10–20; TEMP 36; O2SAT 97–99
--- NOTE | 2024-02-02 07:30 | WPDHPUPDATE1 ---
History and Physical Update Update Date/Time: 02/02/24 07:30 History and Physical has been reviewed, including an updated exam of the patient. There are NO changes in the patient's condition. Risks, benefits, and alternatives have been discussed and questions answered. Patient agrees to proceed with procedure.
--- NOTE | 2024-02-02 07:30 | PM.HPGS ---
History of Present Illness History of Present Illness Consent: Risks, benefits, and alternatives have been discussed and questions answered. Patient agrees to proceed with procedure. Chief complaint: Thickened Endometrium Narrative: Leny Roth is a 63 year old female with a thickened endometrium pelvic ultrasound. Patient denies vaginal bleeding. It was recommended to undergo hysteroscopy with D&C. Due to her history x3 as well as cryotherapy and LEEP, it was recommended to undergo in the operating room. Patient was given Cytotec to assist with cervical dilation. Risks of infection, bleeding, perforation and inability to enter the cavity are reviewed. Patient voices understanding and agrees to proceed. Review of Systems Review of Systems: not repeated day of surgery; patient states no changes in status [facility] Past Medical History Medical History (Updated 02/02/24 @ 07:36 by Marcela Parrish MD) Adrenal adenoma Gastroesophageal reflux disease Hyperlipidemia Hypertension Liver cyst Obesity Seasonal asthma Surgical History Surgical History (Updated 02/02/24 @ 07:35 by Marcela Parrish MD) History of 3 sections History of cervical spinal surgery History of lumbar surgery Status post laparoscopic cholecystectomy Status post LEEP (loop electrosurgical excision procedure) of cervix 1994 the history of cryo surgery to the cervix in 1981 Family History Family History Father Hypertension Social History Social History Social History: Surrogate decision maker: Isac Roth, spouse. Code status: Full code. Smoking packs per day: 0.5 Smoking cigarettes per day: 10.0 Years smoked: 32 Smoking pack-years: 16.00 Smoking status: Former smoker Tobacco type: cigarettes Smoking end date: 07/21/11 Alcohol intake: current Drinks per week: 1 Alcohol use details: 1 a month Substance use: never Substance use type: does not use Living arrangements: with family Additional living arrangements comments: Lives in [place] with her . They have 3 children. Additional occupation/education comments: Employed at a local [employer]. Spiritual care concerns: No Meds Home Medications and Allergies Home Medications Medication Instructions Recorded Confirmed Type allopurinol 100 mg tablet 100 mg PO HS 03/01/21 01/20/24 History aspirin 81 mg tablet,delayed 81 mg PO WEEKLY 03/01/21 01/20/24 History release (Asya Low Dose Aspirin) lisinopril 5 mg tablet 5 mg PO HS 03/01/21 01/20/24 History montelukast 10 mg tablet 10 mg PO HS 03/01/21 01/20/24 History omeprazole 40 mg capsule,delayed 40 mg PO HS 03/01/21 01/20/24 History release rosuvastatin 20 mg tablet 20 mg PO HS 03/01/21 01/20/24 History Allergies Allergy/AdvReac Type Severity Reaction Status Date / Time No Known Allergies Allergy Verified 01/20/24 14:15 Exam Const: General: healthy appearing and alert Orientation/consciousness: patient oriented x3 Resp: Effort & Inspection: normal respiratory effort GI: GI Palp: Yes Soft to palpation, No Tenderness to palpation present (GI) and No Palpable mass present : External Female Exam: normal external appearance Speculum Exam - Vagina: normal appearance of the vagina and normal vaginal discharge Speculum Exam - Cervix: normal appearance of the cervix Bimanual exam- vagina & uterus: consistency normal and enlarged Bimanual Exam- Adnexa, other: normal adnexae and No adnexal tenderness Neuro: General: patient oriented x3 Assessment and Plan Assessment and plan (1) Thickened endometrium: Code(s): R93.89 - Abnormal findings on diagnostic imaging of other specified body structures Status: Acute Assessment and Plan: plan to proceed with D&C hysteroscopy
[2024-02-02] MEDS: ACETAMINOPHEN 500 MG TABLET 1000 MG PO (09:45)
[2024-02-02] MEDS: LACTATED RINGERS 1,000 ML 30 ML IV CONT ×2 (09:55→12:46)
--- NOTE | 2024-02-02 11:27 | WPDANESEPPF ---
Anes - Initial Pre Proc Eval Procedure: Operation Date: 02/02/24 11:00 Proposed Procedures p Hysteroscopy Dilation and Curettage - Marcela Parrish MD Date/Time: 02/02/24 11:27 Surgeon: Marcela Parrish MD Pre Op Diagnosis: Thickened Endometrium Patient Data Age: 63 Gender: F Height: 1.52 m Weight: 77.8 kg Last Vital Signs Temp 96.8 F L 02/02/24 09:20 Pulse 62 02/02/24 09:20 Resp 20 02/02/24 09:20 BP 100/62 02/02/24 09:20 Pulse Ox 97 02/02/24 09:20 O2 Del Method Room Air 02/02/24 09:20 Allergies Allergy/AdvReac Type Severity Reaction Status Date / Time No Known Allergies Allergy Verified 02/02/24 09:42 Home Medications Medication Instructions Recorded Confirmed Type allopurinol 100 mg tablet 100 mg PO HS 03/01/21 02/02/24 History aspirin 81 mg tablet,delayed 81 mg PO WEEKLY 03/01/21 02/02/24 History release (Asya Low Dose Aspirin) lisinopril 5 mg tablet 5 mg PO HS 03/01/21 02/02/24 History montelukast 10 mg tablet 10 mg PO HS 03/01/21 02/02/24 History omeprazole 40 mg capsule,delayed 40 mg PO HS 03/01/21 02/02/24 History release rosuvastatin 20 mg tablet 20 mg PO HS 03/01/21 02/02/24 History Patient hx anesthesia problems: other (states hard to awaken) Family hx anesthesia problems: none Results Review: All pre-operative results and documents have been reviewed as part of the pre-operative evaluation. [facility] Past Medical History Medical History (Updated 02/02/24 @ 07:36 by Marcela Parrish MD) Adrenal adenoma Gastroesophageal reflux disease Hyperlipidemia Hypertension Liver cyst Obesity Seasonal asthma Surgical History Surgical History (Updated 02/02/24 @ 07:35 by Marcela Parrish MD) History of 3 sections History of cervical spinal surgery History of lumbar surgery Status post laparoscopic cholecystectomy Status post LEEP (loop electrosurgical excision procedure) of cervix 1994 the history of cryo surgery to the cervix in 1981 Family History Family History Father Hypertension Social History Social History Social History: Surrogate decision maker: Isac Roth, spouse. Code status: Full code. Smoking packs per day: 0.5 Smoking cigarettes per day: 10.0 Years smoked: 32 Smoking pack-years: 16.00 Smoking status: Former smoker Tobacco type: cigarettes Smoking end date: 07/21/11 Alcohol intake: current Drinks per week: 1 Alcohol use details: 1 a month Substance use: never Substance use type: does not use Living arrangements: with family Additional living arrangements comments: Lives in [place] with her . They have 3 children. Additional occupation/education comments: Employed at a [employer]. Spiritual care concerns: No Anes - Eval Final PreProcedure Day of Procedure 02/02/24 11:27 Patient weight: obese Heart: regular rate and rhythm Lungs: clear to auscultation Airway: Mallampati scale class II Neurological: alert and oriented Last oral intake: >/= 8 hours ASA classification: III Emergent: no Anesthetic plan: proceed Results Review: All pre-operative results and documents have been reviewed as part of the pre-operative evaluation. Informed Consent: The patient's anesthetic plan and its attendant risks and benefits were discussed with the patient/family/POA. Questions were solicited and answers provided to the satisfaction of the patient/family/POA.
[2024-02-02] MEDS: KETOROLAC 15 MG/ML VIAL (*BKC) IV PUSH (12:12)
--- NOTE | 2024-02-02 12:23 | W.PM.PROC2 ---
Procedure Note - Detailed Date of Procedure 02/02/24 Pre-op Diagnosis Thickened Endometrium Post-op Diagnosis Same Procedure Performed D&C hysteroscopy Surgeon Marcela Parrish MD Anesthesia MAC Findings uterus sounds to 8cm 2 large polyps atrophic endometrium Description of Procedure The patient was taken to the operating room and placed under anesthesia in the dorsal lithotomy position. She was prepped and draped in the usual sterile fashion. [place] speculum was placed in the vagina the cervix grasped anterior tenaculum. The uterus is sounded to 8cm. The diagnostic hysteroscope was placed and 2 large polyps were noted. The small Aveta resection device is placed and under direct visualization both polyps were removed in their entirety. The hysteroscope was then removed. The sharp OO curette is used to curette the endometrium until a good uterine cry was noted in all areas. All instruments are removed. Sponge, needle, and instrument counts are correct per the OR staff. The patient was awakened from anesthesia and taken to recovery in stable condition. Estimated Blood Loss 5 Drains No Packing No Pathology Yes ( Endometrial curettings and shavings) Complications No immediate complications Condition Stable Disposition PACU
--- NOTE | 2024-02-02 12:35 | SUR.PHASEII ---
Patient BP 70/40 Patient drowsy but answering questions appropriately. Dr. Villarreal notified. At bedside with medications to given to patient. See anesthesia record for medications given by Dr. Villarreal.
== END 2024-02-02 14:14 | disposition home or self-care (01) ==
PROVIDERS: PCP Physician Assistant; Visit Provider Obstetrics & Gynecology Gynecology
PROC: 0U5B8ZZ Destruction of Endometrium, Via Natural or Artificial Opening Endoscopic (ICD-10-PCS; CPT 58563; principal; 2024-02-02 11:00)
DX: N84.0 Polyp of corpus uteri (principal); D25.9 Leiomyoma of uterus, unspecified; I10 Essential (primary) hypertension; E78.5 Hyperlipidemia, unspecified; K21.9 Gastro-esophageal reflux disease without esophagitis; E66.9 Obesity, unspecified; Z68.33 Body mass index [BMI] 33.0-33.9, adult; Z87.891 Personal history of nicotine dependence; Z79.82 Long term (current) use of aspirin
CPT/HCPCS: 58558; 88305; A9270; J1100; J1596; J1885; J2250; J2371; J2405; J2704; J3010; J7120

== ENCOUNTER 2024-02-13 10:27 | Outpatient (CLI) | payer BC, SELFPAY ==
--- NOTE | ~2024-02-13 | DEXA_ITS ---
Bone Density Report Name: MEÑO CASTANO Age: 63 Sex: Female Ethnicity: White Date of : 1960 Indication: postmenopausal; screening for osteoporosis; history of glucocorticoids; asthma or emphysema; Referring Provider: IAN, RICARDO Study: Bone densitometry was performed. Exam Date: February 13, 2024 Accession number: [id number] Bone Density: Region BMD T-score Z-score Classification AP Spine(L3, L4) 1.455 3.2 4.9 Normal Femoral Neck (Left) 0.943 0.8 2.2 Normal Total Hip (Left) 1.132 1.6 2.6 Normal Femoral Neck (Right) 0.827 -0.2 1.2 Normal Total Hip (Right) 1.082 1.1 2.2 Normal Total Hip Mean 1.107 1.4 2.4 Normal World Health Organization criteria for BMD impression classify patients as: Normal (T-score at or above -1.0), Osteopenia (T-score between -1.0 and -2.5), or Osteoporosis (T-score at or below -2.5). 10-year Fracture Risk: FRAX not reported because: All T-scores for Spine Total, Hip Total, Femoral Neck at or above -1.0 Clinical Information Provided by Patient: Has taken Glucocorticoids Has the following medical conditions: Asthma or Emphysema Patient maximum height was 60.75 Menopause Age: 54 No regular weight bearing exercise Drinks caffeinated beverages Onset of menses at age 11 Number of children 3 Impression: The patient has normal bone mass. The patient has risk factors, including: history of glucocorticoid therapy. Discussion: BONE DENSITY IS ABOVE THE MINIMUM DESIRABLE LEVEL AT ALL SKELETAL SITES TESTED. This patient?s bone mineral density is above the minimum desirable level (T-score -1.0 or better) at all sites measured. The patient should follow a healthful lifestyle (good nutrition with adequate calcium and vitamin D, and appropriate weight-bearing exercise). Follow-Up: Consider repeating this study in 5 years or sooner if there is some new clinical indication. Reported by: CANDIS on 02/13/2024 11:12:00 AM. Reviewed, dictated and finalized at [facility]
== END 2024-02-13 10:28 | disposition home or self-care (01) ==
PROVIDERS: PCP Physician Assistant; Visit Provider Nurse Practitioner
DX: Z13.820 Encounter for screening for osteoporosis (principal); Z78.0 Asymptomatic menopausal state
CPT/HCPCS: 77080

== ENCOUNTER 2024-04-14 12:42 | Emergency (ER) | payer BC, SELFPAY ==
[2024-04-14] VITALS (8 sets, daily range): BP systolic 112–126; BP diastolic 74–84; PULSE 79–94; RESP 14–24; TEMP 36.9; O2SAT 90–100
--- NOTE | ~2024-04-14 | XR_ITS ---
XR chest 1V portable 04/14/2024 13:19 Indication: Left upper abdominal pain Procedure: AP portable chest Comparison: Comparison to multiple prior studies sequentially, with oldest reviewed study dated 04/21. Findings: Cardiomegaly. Mildly elevated right diaphragm. Perihilar interstitial and airspace disease is present, right greater than left. No pleural effusion or pneumothorax. No acute osseous abnormalit y. Impression: 1: Perihilar airspace disease which may represent edema or pneumonia. Clinically correlate. Reviewed, dictated and finalized at location B. Impression: 1: Perihilar airspace disease which may represent edema or pneumonia. Clinicall y correlate.
--- NOTE | ~2024-04-14 | CT_ITS ---
CT abdomen pelvis w con Ordering provider: Caio Villarreal MD History: 63 years Female with . Eval s abd pain. diverticulitis vs kidney stone . Comparison: July 29, 2022 Technique: CT abdomen and pelvis with IV and without oral contrast. Automated exposure control and it erative reconstruction technique were employed. The dose-length product was 531.88 mGy-cm. 100 mL Omn ipaque 350 was given IV. Findings: VISUALIZED LOWER CHEST: Dependent atelectatic changes. UPPER ABDOMINAL ORGANS: Liver: Normal. CBD measures 1.3 cm. Gallbladder: Normal. Spleen: Normal. Stomach/duodenum: Normal. Pancreas: Normal. Slightly prominent pancreatic duct. Adrenals: Normal. Kidneys: Atrophic right kidney with multiple hypodensities and lobulation of the outline. Hypertrophy of the left kidney with areas of scarring. Tiny stone in the medial aspect of the left kidney midpol e. Vascular calcification is less likely. PELVIC ORGANS: The bladder shows slightly thickened wall. Uterus: Normal. Prominent vessels around th e uterus are noted which may indicate pelvic congestion syndrome. BOWEL AND MESENTERY: Colon: diverticulosis with thickening of the wall of the distal descending colon suggestive of diver ticulitis. Surrounding fat stranding is seen. No abscess formation seen. No free air noted. Normal ap pendix. Small Bowel: Normal. No obstruction. Peritoneum/mesentery: No free air or free fluid. No mesenteric lymphadenopathy. RETROPERITONEUM: Normal aorta. Left retroaortic renal vein. No retroperitoneal lymphadenopathy. MUSCULOSKELETAL: Superficial soft tissues: The superficial soft tissues are normal. Bones: Age appropriate degenerative changes of the spine. Bilateral hip osteoarthritic changes. Posto perative changes in the lower lumbar area. IMPRESSION: 1. Diverticulitis of the distal descending colon with surrounding fat stranding. No abscess formatio n or free air is seen. 2. Pelvic congestion syndrome. 3. Atrophic right kidney with hypodense areas which may indicate pyelonephritis. Hypertrophy of the left kidney with multiple areas of scarring.. Reviewed, dictated and finalized at location A. IMPRESSION: 1. Diverticulitis of the distal descending colon with surrounding fat strandin g. No abscess formation or free air is seen. 2. Pelvic congestion syndrome. 3. Atrophic right kidney with hypodense areas which may indicate pyelonephriti s. Hypertrophy of the left kidney with multiple areas of scarring..
--- NOTE | 2024-04-14 13:09 | ECG_ITS ---
Test Date: 2024-04-14 13:32:57 Measurements Intervals [place] Rate: 82 P: 32 AK: 175 QRS: 51 QRSD: 142 T: 23 QT: 403 QTc: 471 Interpretive Statements SINUS RHYTHM RIGHT BUNDLE BRANCH BLOCK ABNORMAL ECG No previous ECG available for comparison Electronically Signed On 04-14-2024 13:35:41 CDT by Edwin Zimmerman D.O.
[2024-04-14] MEDS: HYDROmorphone HCL INJ (*CRX) 1 MG/ML SYR IV PUSH (13:26)
[2024-04-14] MEDS: SODIUM CHLORIDE 0.9% IV 2,000 ML 999 ML IV CONT (13:26)
[2024-04-14] MEDS: ONDANSETRON INJ 4 MG/2 ML VIAL IV PUSH (13:26)
[2024-04-14 13:37] LABS: Estimated CRCL calculation 47 ml/min; Estimated Glomerular Filt Rate 56
[2024-04-14 13:40] LABS: Basophils Absolute Auto 0.1 K/mm3 (0.0-0.1); Basophils Percent Auto 0.4 % (0.2-1.2); Eosinophils Percent Auto 0.3 % (0-4.4); Hematocrit 44.9 % (37.0-47.0); Hemoglobin 14.8 g/dL (12.0-15.0); Immature Granulocyte Absolute 0.05 K/mm3 (0.00-0.031); Immature Granulocyte Percent A 0.4 % (0-0.5); Lymphocytes Percent Auto 10.9 % (18.3-44.2); Mean Corpuscular Hemoglobin 30.6 pg (26-34); Mean Corpuscular Volume 92.8 fl (80-100); Mean Platelet Volume 9.9 fl (7.4-10.4); Monocytes Percent Auto 7.4 % (2.6-8.5); Neutrophils Absolute Auto 11.1 K/mm3 (1.3-6.7); Neutrophils Percent Auto 80.6 % (45.5-73.1); Platelet Count Result 241 k/mm3 (150-375); Red Blood Count 4.84 M/mm3 (4.2-5.4); Red Cell Distribution Width 12.5 % (11.5-14.5); White Blood Count 13.8 K/mm3 (4.5-10.0)
[2024-04-14 13:53] LABS: Alanine Aminotransferase 20 U/L (6-35); Albumin Level 4.8 g/dL (3.5-5.1); Alkaline Phosphatase 82 U/L (38-126); Anion Gap 10 mmol/L (4-12); Aspartate Amino Transferase 24 U/L (14-36); Bilirubin,Total 1.1 mg/dL (0.2-1.3); Blood Urea Nitrogen 15 mg/dL (7-17); Calcium 9.5 mg/dL (8.4-10.2); Carbon Dioxide 26 mmol/L (22-30); Chloride 103 mmol/L (98-107); Estimated CRCL calculation 52 ml/min; Estimated Glomerular Filt Rate > 60; Glucose 117 mg/dL (65-110); Lipase 53 U/L (23-300); Potassium 4.2 mmol/L (3.4-5.0); Sodium 139 mmol/L (137-145)
--- NOTE | 2024-04-14 14:19 | ED.GENADULT ---
HPI - General Adult General Chief complaint: Abdominal Pain Stated complaint: abd pain Time Seen by Provider: 04/14/24 12:57 History of Present Illness HPI narrative: This is a 63-year-old female presenting with left-sided abdominal pain. It has been going on for last 3 days, is achy pain that radiates the left lower quadrant. She also has pain across her lower abdomen but that is chronic. Pain is constant and getting worse. She has never had pain like this for no exacerbating alleviating factors. Associated with nausea but no vomiting. She denies fevers chills chest pain difficulty breathing urinary symptoms. She has a history of diverticulitis. Related Data Home Medications Medication Instructions Recorded Confirmed allopurinol 100 mg tablet 100 mg PO HS 03/01/21 02/02/24 aspirin 81 mg tablet,delayed 81 mg PO WEEKLY 03/01/21 02/02/24 release (Asya Low Dose Aspirin) lisinopril 5 mg tablet 5 mg PO HS 03/01/21 02/02/24 montelukast 10 mg tablet 10 mg PO HS 03/01/21 02/02/24 omeprazole 40 mg capsule,delayed 40 mg PO HS 03/01/21 02/02/24 release rosuvastatin 20 mg tablet 20 mg PO HS 03/01/21 02/02/24 Allergies Allergy/AdvReac Type Severity Reaction Status Date / Time No Known Allergies Allergy Verified 04/14/24 12:43 [facility] Past Medical History Medical History Adrenal adenoma Gastroesophageal reflux disease Hyperlipidemia Hypertension Liver cyst Obesity Seasonal asthma Surgical History Surgical History History of 3 sections History of cervical spinal surgery History of lumbar surgery Status post laparoscopic cholecystectomy Status post LEEP (loop electrosurgical excision procedure) of cervix 1994 the history of cryo surgery to the cervix in 1981 Family History Family History Father Hypertension Social History Social History Social History: Surrogate decision maker: Isac Roth, spouse. Code status: Full code. Smoking packs per day: 0.5 Smoking cigarettes per day: 10.0 Years smoked: 32 Smoking pack-years: 16.00 Smoking status: Former smoker Tobacco type: cigarettes Smoking end date: 07/21/11 Alcohol intake: current Drinks per week: 1 Alcohol use details: 1 a month Substance use: never Substance use type: does not use Living arrangements: with family Additional living arrangements comments: Lives in [place] with her . They have 3 children. Additional occupation/education comments: Employed at a local [employer]. Spiritual care concerns: No Exam Narrative: APPEARANCE: No apparent distress. Head: atraumatic. EYES: EOMI, NOSE: Atraumatic NECK: Trachea midline RESPIRATORY: No increased rate of breathing CARDIOVASCULAR: RRR, ABDOMINAL: Tenderness to palpation that is worse than the left lower quadrant, no guarding rebound mild tenderness along lower abdomen no CVA tenderness MUSCULOSKELETAl: No obvious deformities NEURO: Alert. Moving 4/4 extremities SKIN:: Warm, dry. Normal color PSYCHIATRIC: Normal affect Course Vital Signs Vital signs: Vital Signs Temperature 98.5 F 04/14/24 12:43 Pulse Rate 87 04/14/24 12:43 Respiratory Rate 18 04/14/24 12:43 Blood Pressure 112/74 04/14/24 12:43 Pulse Oximetry 96 04/14/24 12:43 Oxygen Delivery Room Air 04/14/24 12:43 Temperature 98.5 F 04/14/24 12:43 Pulse Rate 87 04/14/24 12:43 Respiratory Rate 18 04/14/24 12:43 Blood Pressure 112/74 04/14/24 12:43 Pulse Oximetry 96 04/14/24 12:43 Oxygen Delivery Room Air 04/14/24 12:43 Medical Decision Making MDM Narrative Medical decision making narrative: -Course: 63-year-old female presenting with left-sided abdominal pain. CT showed diverticulitis without abscess or perforation
[2024-04-14 14:38] LABS: Add Urine Microscopic? YES; Appearance Urine Clear (Clear); Bacteria Urine Rare /hpf; Bilirubin Urine Negative (Negative); Blood Urine Negative (Negative); Color Urine Yellow (Yellow); Glucose Urine UA 3+ mg/dL (Negative); Ketones Urine Negative (Negative); Leukocyte Esterase Ur Negative LEU/UL (Negative); Nitrate Urine Negative (Negative); Non Pathogenic Casts 0-2; Protein Urine Trace mg/dL (Negative); RBC Urine 0-2 /hpf (0-2); Specific Grav Ur > 1.045 (1.001-1.035); Squamous Epithelial Cell Urine None Seen /hpf (Few)
[2024-04-14] MEDS: AMOXICILLIN/CLAVULANATE K 875-125 MG TAB 1 TABLET PO (14:54)
== END 2024-04-14 15:09 | disposition home or self-care (01) ==
PROVIDERS: Emergency Provider Emergency Medicine; PCP Physician Assistant
DX: K57.32 Diverticulitis of large intestine without perforation or abscess without bleeding (principal); N94.89 Other specified conditions associated with female genital organs and menstrual cycle; E78.5 Hyperlipidemia, unspecified; I10 Essential (primary) hypertension; J45.909 Unspecified asthma, uncomplicated; E66.9 Obesity, unspecified; Z68.33 Body mass index [BMI] 33.0-33.9, adult; K21.9 Gastro-esophageal reflux disease without esophagitis; Z87.891 Personal history of nicotine dependence; Z90.49 Acquired absence of other specified parts of digestive tract; Z79.899 Other long term (current) drug therapy; Z79.82 Long term (current) use of aspirin; I45.10 Unspecified right bundle-branch block; N28.81 Hypertrophy of kidney
CPT/HCPCS: 36415; 71045; 74177; 80053; 81001; 83690; 85025; 87077; 87086; 87088; 87181; 93005; 96361; 96374; 96375; 99284; A9270; J1170; J2405; J7030; Q9967

== ENCOUNTER 2024-04-20 13:30 | Outpatient (CLI) | payer BC, SELFPAY ==
--- NOTE | ~2024-04-20 | MM_ITS ---
EXAMINATION: MM screening [facility] w juan jose HISTORY: Screening TECHNIQUE: Craniocaudal and mediolateral oblique 3-D tomosynthesis images were obtained and synthetic 2-D images were generated. CAD analysis was submitted and interpreted. COMPARISON: Comparison to multiple prior studies sequentially, with oldest reviewed study dated 01/2016. BREAST PARENCHYMAL COMPOSITION: Not dense: There are scattered areas of fibroglandular density. FINDINGS: There is no evidence of suspicious mass, calcification, or architectural distortion to sugg est malignancy in either breast. There has been no suspicious interval change. IMPRESSION: 1. No mammographic evidence of malignancy. 2. Recommend routine screening mammography in one year. BI-RADS Category 1: Negative Reviewed, dictated and finalized at location B.
== END 2024-04-20 13:31 | disposition home or self-care (01) ==
LOC: MICIMG 13:32
PROVIDERS: PCP Physician Assistant; Visit Provider Nurse Practitioner
DX: Z12.31 Encounter for screening mammogram for malignant neoplasm of breast (principal)
CPT/HCPCS: 77063; 77067

== ENCOUNTER 2024-11-09 09:02 | Outpatient (CLI) | payer BC, SELFPAY ==
--- NOTE | ~2024-11-09 | CT_ITS ---
CT Scan of the Chest without Contrast: Clinical Indication: Interstitial lung disease Technique: Contiguous sections were acquired throughout the chest without intravenous contrast. Dose reduction technique was used on this scan by utilizing automated exposure control and iterative recon struction technique. The dose-length product (DLP) was 212.55 mGy-cm. COMPARISON: 01/16/2023 Findings: There is no evidence of any significant mediastinal, hilar or axillary lymphadenopathy. The mediastin al soft tissues appear normal. There is no evidence of pleural or pericardial effusion. There is stable chronic interstitial changes with minimal groundglass opacity in the lower lobes. The re is minimal involvement in the inferior right upper lobe. Images through the upper abdomen reveal no abnormalities. Impression: Stable chronic interstitial disease with minimal groundglass opacity, predominantly in the lower lobe s. Reviewed, dictated and finalized at location M. Impression: Stable chronic interstitial disease with minimal groundglass opacity, predomina ntly in the lower lobes.
== END 2024-11-09 09:03 | disposition home or self-care (01) ==
LOC: MICIMG 09:02
PROVIDERS: PCP Physician Assistant; Visit Provider Nurse Practitioner
DX: J84.10 Pulmonary fibrosis, unspecified (principal); F17.211 Nicotine dependence, cigarettes, in remission
CPT/HCPCS: 71250